=== PATIENT | male | born 1965 | race African-American/Black ===

== ENCOUNTER 2017-01-03 23:54 | Inpatient (IN) | payer SELFPAY ==
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
[2017-01-04] MEDS ORDERED: OXYCODONE-ACETAMINOPHEN 5-325 MG TABLET PO PRN (01:28)
[2017-01-04] MEDS ORDERED: ONDANSETRON HCL INJ/PF 4 MG/2 ML SDV IV PRN (01:28)
[2017-01-04 02:05] LABS: HEMATOCRIT 40.8 % (37.9-51.0); HEMOGLOBIN 13.8 g/dL (13.5-17.0); HGB HCT DIFFERENCE 0.6; MEAN CORPUSCULAR HEMOGLOBIN 32.5 pg (27.0-33.4); MEAN CORPUSCULAR HGB CONC 33.8 g/dL (32.0-36.0); MEAN CORPUSCULAR VOLUME 96 fl (80-97); RED BLOOD COUNT 4.25 10^6/uL (4.35-5.55); RED CELL DISTRIBUTION WIDTH 12.3 % (11.5-14.0); WHITE BLOOD COUNT 13.4 10^3/uL (4.0-10.5)
[2017-01-04 02:15] LABS: ANION GAP 14 (5-19); BLOOD UREA NITROGEN 16 mg/dL (7-20); CALCIUM 9.2 mg/dL (8.4-10.2); CARBON DIOXIDE 27 mmol/L (22-30); CHLORIDE 106 mmol/L (98-107); CREATININE RESULT 0.68 mg/dL (0.52-1.25); GLUCOSE 191 mg/dL (75-110); POTASSIUM 4.4 mmol/L (3.6-5.0); SODIUM 147.2 mmol/L (137-145)
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
[2017-01-04] MEDS: MORPHINE SULFATE 10 MG/ML INJ IV PRN ×4 (03:25→22:27)
[2017-01-04] MEDS ORDERED: INFLUENZA ADLT QUAD (36MOS+) 2017-18 VAC 0.5 ML SYR IM PRN (03:58)
--- NOTE | 2017-01-04 08:14 | RADIOLOGY REPORT (SQ) ---
EXAM DESCRIPTION: CHEST SINGLE VIEW COMPLETED DATE/TIME: 01/04/2017 1:46 am REASON FOR STUDY: pre-op COMPARISON: None. EXAM PARAMETERS: NUMBER OF VIEWS: One view. TECHNIQUE: Single frontal radiographic view of the chest acquired. RADIATION DOSE: NA LIMITATIONS: None. FINDINGS: LUNGS AND PLEURA: No opacities, masses or pneumothorax. No pleural effusion. MEDIASTINUM AND HILAR STRUCTURES: No masses. Contour normal. HEART AND VASCULAR STRUCTURES: Cardiac silhouette is enlarged. Normal vasculature. BONES: No acute findings. HARDWARE: None in the chest. OTHER: No other significant finding. IMPRESSION: CLEAR LUNGS. ENLARGED CARDIAC SILHOUETTE. DIFFERENTIAL INCLUDES CARDIOMEGALY AND PERICARDIAL EFFUSION. CONSIDER ECHO FOR FURTHER EVALUATION. TECHNICAL DOCUMENTATION: JOB ID: [id number]
[2017-01-04] MEDS ORDERED: GLUCAGON,HUMAN RECOMB 1 MG INJ SUBCUT PRN (10:58)
[2017-01-04] MEDS ORDERED: DEXTROSE 40% GEL 15 GM TUBE PO PRN ×4 (10:58→17:02)
[2017-01-04] MEDS ORDERED: DEXTROSE 50%-WATER 25 GM/50 ML DISP.SYRIN IV PRN ×4 (10:58→17:02)
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
[2017-01-04] MEDS ORDERED: HEPARIN SOD (PORCINE) 5,000 UNIT/ML 1 ML SYRINGE SUBCUT ONE (12:15)
[2017-01-04] MEDS ORDERED: INSULIN REG, HUMAN 100 UNIT/ML 3 ML VIAL (PYX) SUBCUT PRN (17:02)
[2017-01-04] MEDS ORDERED: GLUCAGON,HUMAN RECOMB 1 MG INJ IM PRN (17:02)
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
[2017-01-05 07:07] LABS: ABSOLUTE BASOPHILS # (AUTO) 0.1 10^3/uL (0.0-0.2); ABSOLUTE EOSINOPHILS # (AUTO) 0.2 10^3/uL (0.0-0.6); ABSOLUTE LYMPHOCYTES (AUTO) 2.8 10^3/uL (0.5-4.7); ABSOLUTE MONOCYTES (AUTO) 1.7 10^3/uL (0.1-1.4); ABSOLUTE NEUT (AUTO) 5.7 10^3/uL (1.7-8.2); BASOPHILS % (AUTO) 0.6 % (0-2); HEMATOCRIT 37.5 % (37.9-51.0); HEMOGLOBIN 12.8 g/dL (13.5-17.0); HGB HCT DIFFERENCE 0.9; LYMPHOCYTES % (AUTO) 27.2 % (13-45); MEAN CORPUSCULAR HEMOGLOBIN 32.4 pg (27.0-33.4); MEAN CORPUSCULAR HGB CONC 34.1 g/dL (32.0-36.0); MEAN CORPUSCULAR VOLUME 95 fl (80-97); MONOCYTES % (AUTO) 15.8 % (3-13); RED BLOOD COUNT 3.95 10^6/uL (4.35-5.55); RED CELL DISTRIBUTION WIDTH 11.9 % (11.5-14.0); SEGMENTED NEUTROPHILS % (AUTO) 54.4 % (42-78); WHITE BLOOD COUNT 10.4 10^3/uL (4.0-10.5)
[2017-01-05 07:23] LABS: ANION GAP 11 (5-19); BLOOD UREA NITROGEN 15 mg/dL (7-20); CALCIUM 9.1 mg/dL (8.4-10.2); CARBON DIOXIDE 29 mmol/L (22-30); CHLORIDE 102 mmol/L (98-107); CHOLESTEROL 165.21 mg/dL (0-200); CREATININE RESULT 0.66 mg/dL (0.52-1.25); Direct HDL 32 mg/dL (>40); GLUCOSE 165 mg/dL (75-110); POTASSIUM 4.1 mmol/L (3.6-5.0); TRIGLYCERIDES 59 mg/dL (<150)
[2017-01-05] MEDS ORDERED: FENTANYL CITRATE INJ/PF 100 MCG/2 ML AMPUL ONE ×2 (07:28→11:15)
[2017-01-05] MEDS ORDERED: MIDAZOLAM 2 MG/2 ML INJ ONE (07:28)
[2017-01-05] MEDS ORDERED: HYDROMORPHONE HCL INJ/PF 2 MG/ML AMPULE ONE (07:28)
[2017-01-05] MEDS ORDERED: EPHEDRINE SULFATE INJ 50 MG/1 ML AMPULE ONE (07:29)
[2017-01-05] MEDS ORDERED: PROPOFOL INJ 200 MG/20 ML VIAL IV ONE (07:29)
[2017-01-05] MEDS ORDERED: IBUPROFEN INJ 800 MG/8 ML VIAL IV ONE (07:29)
[2017-01-05] MEDS ORDERED: ACETAMINOPHEN 100 ML IV ONE (07:29)
[2017-01-05 07:34] LABS: DIRECT LDL 126 mg/dL (<100)
[2017-01-05 07:53] LABS: THYROID STIMULATING HORMONE 0.33 uIU/mL (0.47-4.68)
[2017-01-05] MEDS ORDERED: CEFAZOLIN INJ 1 GM VIAL ONE (08:11)
[2017-01-05] MEDS ORDERED: FENTANYL CITRATE INJ/PF 100 MCG/2 ML AMPUL IV PRN ×3 (08:31)
[2017-01-05] MEDS ORDERED: MORPHINE SULFATE 10 MG/ML INJ IV PRN (08:31)
[2017-01-05] MEDS ORDERED: DIPHENHYDRAMINE HCL 50 MG/ML VIAL IV PRN (08:31)
[2017-01-05] MEDS ORDERED: ONDANSETRON HCL INJ/PF 4 MG/2 ML SDV IV PRN (08:31)
[2017-01-05] MEDS ORDERED: PROMETHAZINE HCL INJ 25 MG/1 ML VIAL IV PRN ×2 (08:31)
[2017-01-05] MEDS ORDERED: MEPERIDINE HCL/PF INJ 25 MG/1 ML DISP.SYRIN IV PRN (08:31)
[2017-01-05] MEDS ORDERED: OXYCODONE-ACETAMINOPHEN 5-325 MG TABLET PO PRN ×2 (08:31)
[2017-01-05] MEDS ORDERED: BUPIVACAINE HCL 0.5 % INJ/PF 30 ML SDV ONE (10:17)
[2017-01-05] MEDS ORDERED: BUPIVACAINE HCL 0.5 % INJ/PF 30 ML SDV INJ ONE (10:21)
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
--- NOTE | 2017-01-05 11:18 | RADIOLOGY REPORT (SQ) ---
EXAM DESCRIPTION: ANKLE LEFT COMPLETE; NO CHG FLUORO COMPLETED DATE/TIME: 01/05/2017 11:08 am REASON FOR STUDY: ORIF LT ANKLE COMPARISON: 01/04/2017 FLUOROSCOPY TIME: 2.1 minutes. TECHNIQUE: Intra-operative images acquired during surgical procedure to evaluate progress. NUMBER OF IMAGES: 7 images. LIMITATIONS: None. FINDINGS: Fluoroscopic imaging obtained during ORIF demonstrates internal fixation of the distal tib ia without gross complication. IMPRESSION: IMAGE(S) OBTAINED DURING PROCEDURE. COMMENT: Quality ID [id number]: Final reports for procedures using fluoroscopy that document radiation exp osure indices, or exposure time and number of fluorographic images (if radiation exposure indices are not available) Please consult full operative report of the attending physician for description of the procedure. TECHNICAL DOCUMENTATION: JOB ID: [id number] [employer]- All Rights Reserved
--- NOTE | 2017-01-05 11:18 | RADIOLOGY REPORT (SQ) ---
EXAM DESCRIPTION: ANKLE LEFT COMPLETE; NO CHG FLUORO COMPLETED DATE/TIME: 01/05/2017 11:08 am REASON FOR STUDY: ORIF LT ANKLE COMPARISON: 01/04/2017 FLUOROSCOPY TIME: 2.1 minutes. TECHNIQUE: Intra-operative images acquired during surgical procedure to evaluate progress. NUMBER OF IMAGES: 7 images. LIMITATIONS: None. FINDINGS: Fluoroscopic imaging obtained during ORIF demonstrates internal fixation of the distal tib ia without gross complication. IMPRESSION: IMAGE(S) OBTAINED DURING PROCEDURE. COMMENT: Quality ID [id number]: Final reports for procedures using fluoroscopy that document radiation exp osure indices, or exposure time and number of fluorographic images (if radiation exposure indices are not available) Please consult full operative report of the attending physician for description of the procedure. TECHNICAL DOCUMENTATION: JOB ID: [id number] [employer]- All Rights Reserved
[2017-01-05 13:03] LABS: HEMATOCRIT 38.8 % (37.9-51.0); HEMOGLOBIN 12.9 g/dL (13.5-17.0); HGB HCT DIFFERENCE -0.1; MEAN CORPUSCULAR HEMOGLOBIN 32.1 pg (27.0-33.4); MEAN CORPUSCULAR HGB CONC 33.3 g/dL (32.0-36.0); MEAN CORPUSCULAR VOLUME 97 fl (80-97); RED BLOOD COUNT 4.02 10^6/uL (4.35-5.55); RED CELL DISTRIBUTION WIDTH 12.2 % (11.5-14.0); WHITE BLOOD COUNT 11.5 10^3/uL (4.0-10.5)
[2017-01-05 13:10] LABS: PROTHROMBIN TIME 14.1 SEC (11.4-15.4)
[2017-01-05 13:11] LABS: PARTIAL THROMBOPLASTIN TIME 30.1 SEC (23.5-35.8)
[2017-01-05 13:24] LABS: CREATININE RESULT 0.69 mg/dL (0.52-1.25)
[2017-01-05] MEDS: HEPARIN SOD (PORCINE) 5,000 UNIT/ML 1 ML SYRINGE SUBCUT SCH ×2 (13:29→21:16)
[2017-01-05] MEDS: KETOROLAC TROMETHAMINE INJ/PF 30 MG/1 ML SDV IV SCH ×3 (13:29→23:06)
[2017-01-05] MEDS ORDERED: ONDANSETRON HCL INJ/PF 4 MG/2 ML SDV ONE (14:38)
[2017-01-05] MEDS ORDERED: SUCCINYLCHOLINE CHLORIDE INJ 200 MG/10 ML VIAL ONE (14:38)
[2017-01-05] MEDS ORDERED: METOCLOPRAMIDE HCL INJ/PF 10 MG/2 ML SDV ONE (14:38)
[2017-01-05] MEDS ORDERED: LIDOCAINE 2% INJ-PF (20 MG/ML) 10 ML AMPUL ONE (14:38)
[2017-01-05] MEDS ORDERED: DEXAMETHASONE SOD PHOSPHATE INJ 4 MG/1 ML VIAL ONE (14:38)
--- NOTE | 2017-01-05 17:02 | EKG REPORT ---
SEVERITY:- ABNORMAL ECG - SINUS TACHYCARDIA MULTIPLE ATRIAL PREMATURE COMPLEXES PROBABLE LEFT ATRIAL ABNORMALITY BORDERLINE T ABNORMALITIES, INFERIOR LEADS : Confirmed by: Serenity Cavazos MD 05-Jan-2017 17:01:53
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
[2017-01-05] MEDS: OXYCODONE HCL SR 10 MG TABLET PO SCH (21:16)
[2017-01-05] MEDS ORDERED: INSULIN REG, HUMAN 100 UNIT/ML 3 ML VIAL (PYX) SUBCUT PRN (22:07)
[2017-01-05] MEDS ORDERED: INSULIN REG, HUMAN 100 UNIT/ML 3 ML VIAL (PYX) SUBCUT ONE (22:22)
[2017-01-06] MEDS: HEPARIN SOD (PORCINE) 5,000 UNIT/ML 1 ML SYRINGE SUBCUT SCH (06:05)
[2017-01-06] MEDS: KETOROLAC TROMETHAMINE INJ/PF 30 MG/1 ML SDV IV SCH (06:05)
[2017-01-06 06:13] LABS: HEMOGLOBIN 11.8 g/dL (13.5-17.0); HGB HCT DIFFERENCE 0.4; MEAN CORPUSCULAR HGB CONC 33.8 g/dL (32.0-36.0); MEAN CORPUSCULAR VOLUME 95 fl (80-97); RED CELL DISTRIBUTION WIDTH 12.2 % (11.5-14.0); WHITE BLOOD COUNT 20.8 10^3/uL (4.0-10.5)
[2017-01-06 06:20] LABS: ANION GAP 10 (5-19); BLOOD UREA NITROGEN 17 mg/dL (7-20); CARBON DIOXIDE 28 mmol/L (22-30); CHLORIDE 106 mmol/L (98-107); CREATININE RESULT 0.61 mg/dL (0.52-1.25); GLUCOSE 117 mg/dL (75-110)
[2017-01-06 10:21] VITALS: BP 137/89
[2017-01-06] MEDS: OXYCODONE HCL SR 10 MG TABLET PO SCH (10:53)
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
== END 2017-01-06 11:25 | disposition home or self-care (01) | DRG 494 ==
LOC: ER 23:54 → EH 01-04 01:22 → INTOOBSV 01-04 01:22 → OBSVTOIN 01-04 01:22 → UNDOADMIN 01-04 01:27 → EH 01-04 01:27 → 5 01-04 02:49
PROVIDERS: ADMIT Orthopaedic Surgery; ATTEND Orthopaedic Surgery
PROC: 0QSH34Z Reposition Left Tibia with Internal Fixation Device, Percutaneous Approach (ICD-10-PCS; principal; 2017-01-05 08:00)
DX: S82.872A Displaced pilon fracture of left tibia, initial encounter for closed fracture (principal); S42.142A Displaced fracture of glenoid cavity of scapula, left shoulder, initial encounter for closed fracture; S09.90XA Unspecified injury of head, initial encounter; Y04.0XXA Assault by unarmed brawl or fight, initial encounter; E78.5 Hyperlipidemia, unspecified; I10 Essential (primary) hypertension; E11.9 Type 2 diabetes mellitus without complications; J32.0 Chronic maxillary sinusitis; F17.210 Nicotine dependence, cigarettes, uncomplicated; M50.322 Other cervical disc degeneration at C5-C6 level; E11.65 Type 2 diabetes mellitus with hyperglycemia; Z79.899 Other long term (current) drug therapy; Z91.11 Patient's noncompliance with dietary regimen
CPT/HCPCS: 01480; 36415; 70450; 71010; 72125; 80048; 80061; 82565; 82962; 83036; 84439; 84443; 85025; 85027; 85610; 85730; 90686; 93005; 93010; 99285; C1713; J0131; J0330; J0690; J1100; J1170; J1644; J1741; J1815; J1885; J2250; J2270; J2405; J2704; J2765; J3010; J3490; L0120

== ENCOUNTER 2019-05-19 12:00 | Emergency (ER) | payer BC, OTHER ==
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
--- NOTE | 2019-05-19 13:37 | RADIOLOGY REPORT (SQ) ---
EXAM DESCRIPTION: ANKLE LEFT COMPLETE COMPLETED DATE/TIME: 05/19/2019 1:21 pm REASON FOR STUDY: POSSIBLE BROKEN PLATE COMPARISON: None. NUMBER OF VIEWS: Three views. TECHNIQUE: AP, lateral, and oblique radiographic images acquired of the left ankle. LIMITATIONS: None. FINDINGS: MINERALIZATION: Normal. BONES: Posttraumatic and postsurgical changes in the distal tibia and fibula. Internal fixation plat e remains in the distal tibia. There has been fusion of the distal tibiofibular joint. No acute fra cture or dislocation. JOINTS: There are degenerative changes in the tibiotalar joint as well. SOFT TISSUES: No soft tissue swelling. No foreign body. OTHER: No other significant finding. IMPRESSION: Posttraumatic, postsurgical and degenerative changes. No acute fracture or dislocation. TECHNICAL DOCUMENTATION: JOB ID: [id number] 2010 [employer]- All Rights Reserved Reading location - IP/workstation name: [email or web address]
--- NOTE | 2019-05-19 13:43 | RADIOLOGY REPORT (SQ) ---
EXAM DESCRIPTION: FOOT BILATERAL 3 VIEWS COMPLETED DATE/TIME: 05/19/2019 1:21 pm REASON FOR STUDY: R ft - ulcer/wound; L ft - possible broken plate COMPARISON: None. NUMBER OF VIEWS: Three views. TECHNIQUE: AP, lateral and oblique without weight bearing radiographic images acquired of the right and left foot. LIMITATIONS: None. FINDINGS: MINERALIZATION: Normal. BONES: No acute fracture or dislocation. No worrisome bone lesions. No significant osteophytes. JOINTS: No erosions. No handy-articular osteopenia. No chondrocalcinosis. SOFT TISSUES: Small soft tissue ulceration along the ventral aspect of the foot near the metatarsal p halangeal joints. OTHER: No other significant finding. IMPRESSION: Soft tissue changes as described on the right foot. No conventional radiographic eviden ce of osteomyelitis. TECHNICAL DOCUMENTATION: JOB ID: [id number] 2010 [employer]- All Rights Reserved Reading location - IP/workstation name: [email or web address]
[2019-05-19 14:51] LABS: ABSOLUTE BASOPHILS # (AUTO) 0.1 10^3/uL (0.0-0.2); ABSOLUTE LYMPHOCYTES (AUTO) 0.8 10^3/uL (0.5-4.7); ABSOLUTE MONOCYTES (AUTO) 1.9 10^3/uL (0.1-1.4); ABSOLUTE NEUT (AUTO) 12.9 10^3/uL (1.7-8.2); BASOPHILS % (AUTO) 0.3 % (0-2); EOSINOPHILS % (AUTO) 0.3 % (0-6); HEMATOCRIT 43.3 % (37.9-51.0); HEMOGLOBIN 14.8 g/dL (13.5-17.0); LYMPHOCYTES % (AUTO) 5.3 % (13-45); MEAN CORPUSCULAR HEMOGLOBIN 32.4 pg (27.0-33.4); MEAN CORPUSCULAR HGB CONC 34.1 g/dL (32.0-36.0); MEAN CORPUSCULAR VOLUME 95 fl (80-97); MONOCYTES % (AUTO) 11.8 % (3-13); PLATELET COUNT 259 10^3/uL (150-450); RED BLOOD COUNT 4.56 10^6/uL (4.35-5.55); SEGMENTED NEUTROPHILS % (AUTO) 82.3 % (42-78); TOTAL CELLS COUNTED % (AUTO) 100 %; WHITE BLOOD COUNT 15.7 10^3/uL (4.0-10.5)
[2019-05-19 15:10] LABS: ALBUMIN 3.9 g/dL (3.5-5.0); ALKALINE PHOSPHATASE 115 U/L (38-126); ANION GAP 9 (5-19); ASPARTATE AMINO TRANSFERASE 32 U/L (17-59); BILIRUBIN,DIRECT 0.5 mg/dL (0.0-0.4); BILIRUBIN,TOTAL 1.2 mg/dL (0.2-1.3); BLOOD UREA NITROGEN 16 mg/dL (7-20); CALCIUM 9.4 mg/dL (8.4-10.2); CARBON DIOXIDE 33 mmol/L (22-30); CHLORIDE 97 mmol/L (98-107); GLUCOSE 288 mg/dL (75-110); POTASSIUM 4.9 mmol/L (3.6-5.0); TOTAL PROTEIN 8.3 g/dL (6.3-8.2)
[2019-05-19 18:20] VITALS: BP 113/46
--- NOTE | 2019-05-20 13:48 | ER Document Report ---
Entered by DILLON ORDOÑEZ SCRIBE 05/19/19 1758 Acting as scribe for:MARYJO SENIOR, DO ED Extremity Problem, Lower - General Chief Complaint: Foot Pain Stated Complaint: FOOT PAIN Time Seen by Provider: 05/19/19 12:49 Mode of Arrival: Ambulatory Information source: Patient Notes: This 53 year old male patient presents to the emergency department today with complaints of an ulceration to the bottom of his right foot. Patient reports that about 9 months ago he stepped on a thumb tack in this same area but never had a problem with it until a few weeks ago. TRAVEL OUTSIDE OF THE [place] IN LAST 30 DAYS: No - Related Data Allergies/Adverse Reactions: No Known Allergies Allergy (Verified 05/19/19 12:49) Past Medical History - General Information source: Patient - Social History Smoking Status: Current Every Day Smoker Cigarette use (# per day): Yes Frequency of alcohol use: None Drug Abuse: None Family History: Reviewed & Not Pertinent Patient has suicidal ideation: No Patient has homicidal ideation: No - Past Medical History Cardiac Medical History: Reports: Hx Hypercholesterolemia, Hx Hypertension Endocrine Medical History: Reports: Hx Diabetes Mellitus Type 2 Review of Systems - Review of Systems Constitutional: No symptoms reported EENT: No symptoms reported Cardiovascular: No symptoms reported Respiratory: No symptoms reported Gastrointestinal: No symptoms reported Genitourinary: No symptoms reported Male Genitourinary: No symptoms reported Musculoskeletal: No symptoms reported Skin: See HPI, Lesions Hematologic/Lymphatic: No symptoms reported Neurological/Psychological: No symptoms reported -: Yes All other systems reviewed and negative Physical Exam - Vital signs Vitals: Temp Pulse Resp BP Pulse Ox 98.6 F 102 H 18 168/98 H 98 05/19/19 12:46 05/19/19 12:46 05/19/19 12:46 05/19/19 12:46 05/19/19 12:46 - Notes Notes: Physical Exam: General: Alert, appears well. HEENT: Normocephalic. Atraumatic. PERRL. Extraocular movements intact. Oropharynx clear. Neck: Supple. Non-tender. Respiratory: No respiratory distress. Clear and equal breath sounds bilaterally. Cardiovascular: Regular rate and rhythm. Abdominal: Normal Inspection. Non-tender. No distension. Normal Bowel Sounds. Back: No gross abnormalities. Extremities: Moves all four extremities. Upper extremities: Normal inspection. Normal ROM. Lower extremities: see skin exam Neurological: Normal cognition. AAOx4. Normal speech. Psychological: Normal affect. Normal Mood. Skin: 1cm ulceration to the base of the right first metatarsal. This ulcer is 3mm deep. There is surrounding granulation tissue. No surrounding erythema or concern for cellulitis. Course - Vital Signs Vital signs: Temp Pulse Resp BP Pulse Ox 99.5 F 96 18 113/46 L 98 05/19/19 18:07 05/19/19 18:07 05/19/19 12:46 05/19/19 18:07 05/19/19 18:07 - Laboratory Result Diagrams: 05/19/19 14:25 05/19/19 14:25 Laboratory results interpreted by me: 05/19/19 05/19/19 05/19/19 14:25 14:25 14:26 WBC 15.7 H Lymph % (Auto) 5.3 L Absolute Neuts (auto) 12.9 H Absolute Monos (auto) 1.9 H Seg Neutrophils % 82.3 H Chloride 97 L Carbon Dioxide 33 H Glucose 288 H POC Glucose 257 H Direct Bilirubin 0.5 H Total Protein 8.3 H Discharge - Discharge Clinical Impression: Hypertension Qualifiers: Hypertension type: unspecified Qualified Code(s): I10 - Essential (primary) hypertension DM type 2 (diabetes mellitus, type 2) Qualifiers: Diabetes mellitus fdc insulin use: without genetic engineer use Diabetes mellitus complication status: with other specified complication Qualified Code(s): E11.69 - Type 2 diabetes mellitus with other specified complication Condition: Good Disposition: HOME, SELF-CARE Instructions: Diabetes ([facility]), Control of Diabetes During Illness ([facility]), Foot or Leg Ulcer ([facility]) Additional Instructions: See your doctor in follow up. Follow the diabetic diet. Please return here for any problems or any concerns. Prescriptions: Amoxicillin/Potassium Clav [Augmentin 875-125 Tablet] 1 tab PO BID #20 tab Metformin HCl 1,000 mg PO BID #60 tablet I personally performed the services described in the documentation, reviewed and edited the documentation which was dictated to the scribe in my presence, and it accurately records my words and actions.
== END 2019-05-19 18:20 | disposition home or self-care (01) ==
LOC: ER 12:00
DX: E11.621 Type 2 diabetes mellitus with foot ulcer (principal); L97.519 Non-pressure chronic ulcer of other part of right foot with unspecified severity; I10 Essential (primary) hypertension; F17.210 Nicotine dependence, cigarettes, uncomplicated
CPT/HCPCS: 36415; 80053; 82962; 85025; 99283

== ENCOUNTER 2019-06-18 16:57 | Inpatient (IN) | payer BC ==
[2019-06-18] MEDS ORDERED: NORMAL SALINE 1000 ML 1,000 ML IV PRN (17:12)
--- NOTE | 2019-06-18 17:15 | ER Document Report ---
ED Medical Screen (RME) - General Chief Complaint: Foot Pain Stated Complaint: OPEN SORE/RIGHT FOOT, DRAINAGE Time Seen by Provider: 06/18/19 17:00 Mode of Arrival: Ambulatory TRAVEL OUTSIDE OF THE [place] IN LAST 30 DAYS: No - HPI Onset: Other - This is a 53-year-old male presented emergency room today with pain and tenderness to his right foot he has apparently had some cellulitis there and a puncture wound about 3 weeks ago he was seen here at 1 point in time followed up in urgent care has been on antibiotics for approximately 20 days the infection seems to be getting worse and it is rather odiferous. He was seen in urgent care today and referred here. - Related Data Allergies/Adverse Reactions: No Known Allergies Allergy (Verified 06/18/19 17:04) Home Medications: atb. meformin Past Medical History - Social History Chew tobacco use (# tins/day): No Frequency of alcohol use: None Drug Abuse: None - Past Medical History Cardiac Medical History: Reports: Hx Hypercholesterolemia, Hx Hypertension Endocrine Medical History: Reports: Hx Diabetes Mellitus Type 2 Physical Exam - Vital signs Vitals: Temp Pulse Resp BP Pulse Ox 100.0 F 102 H 20 150/87 H 99 06/18/19 17:04 06/18/19 17:04 06/18/19 17:04 06/18/19 17:04 06/18/19 17:04 - Cardiovascular Rhythm: Regular Heart sounds: Normal auscultation Murmur: No Course - Vital Signs Vital signs: Temp Pulse Resp BP Pulse Ox 100.0 F 102 H 20 150/87 H 99 06/18/19 17:04 06/18/19 17:04 06/18/19 17:04 06/18/19 17:04 06/18/19 17:04
[2019-06-18] MEDS ORDERED: ACETAMINOPHEN 325 MG TABLET PO ONE (17:54)
--- NOTE | 2019-06-18 17:59 | RADIOLOGY REPORT (SQ) ---
EXAM DESCRIPTION: FOOT RIGHT COMPLETE COMPLETED DATE/TIME: 06/18/2019 5:40 pm REASON FOR STUDY: pain COMPARISON: None. NUMBER OF VIEWS: Three views. TECHNIQUE: AP, lateral and oblique radiographic images acquired of the right foot. LIMITATIONS: None. FINDINGS: MINERALIZATION: Osteopenia. BONES: No fracture or dislocation. No bone destruction. JOINTS: No effusions. SOFT TISSUES: Soft tissue lesions are seen in the medial aspect of the foot. OTHER: No other significant finding. IMPRESSION: Osteopenia. There is no evidence of osteomyelitis. TECHNICAL DOCUMENTATION: JOB ID: [id number] 2010 [employer]- All Rights Reserved Reading location - IP/workstation name: [email or web address]
[2019-06-18 18:06] LABS: INTERNATIONAL RATION (INR) 1.07; PROTHROMBIN TIME 13.9 SEC (11.4-15.4)
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
[2019-06-18 18:24] LABS: ALBUMIN 3.8 g/dL (3.5-5.0); ALKALINE PHOSPHATASE 167 U/L (38-126); ANION GAP 12 (5-19); ASPARTATE AMINO TRANSFERASE 37 U/L (17-59); BILIRUBIN,DIRECT 0.6 mg/dL (0.0-0.4); BLOOD UREA NITROGEN 15 mg/dL (7-20); CALCIUM 9.1 mg/dL (8.4-10.2); CARBON DIOXIDE 25 mmol/L (22-30); CHLORIDE 100 mmol/L (98-107); POTASSIUM 4.2 mmol/L (3.6-5.0); TOTAL PROTEIN 9.4 g/dL (6.3-8.2)
[2019-06-18 18:29] LABS: HEMATOCRIT 38.6 % (37.9-51.0); HEMOGLOBIN 12.8 g/dL (13.5-17.0); MEAN CORPUSCULAR HEMOGLOBIN 31.3 pg (27.0-33.4); MEAN CORPUSCULAR HGB CONC 33.1 g/dL (32.0-36.0); MEAN CORPUSCULAR VOLUME 95 fl (80-97); PLATELET COUNT 276 10^3/uL (150-450); RED BLOOD COUNT 4.08 10^6/uL (4.35-5.55); RED CELL DISTRIBUTION WIDTH 13.6 % (11.5-14.0); WHITE BLOOD COUNT 21.3 10^3/uL (4.0-10.5)
[2019-06-18 18:34] LABS: GLUCOSE 416 mg/dL (75-110)
[2019-06-18 18:38] LABS: ABSOLUTE LYMPHOCYTES# (MANUAL) 2.1 10^3/uL (0.5-4.7); ABSOLUTE MONOCYTES # (MANUAL) 1.1 10^3/uL (0.1-1.4); BASOPHILS % (MANUAL) 0 % (0-2); EOSINOPHILS % (MANUAL) 0 % (0-6); LYMPHOCYTES % (MANUAL) 10 % (13-45); MONOCYTES % (MANUAL) 5 % (3-13); PLATELET COMMENT ADEQUATE; SEGMENTED NEUTROPHILS % (MAN) 85 % (42-78); TOTAL CELLS COUNTED 100
[2019-06-18 18:39] LABS: PLATELET LARGE PRESENT
[2019-06-18 18:41] LABS: HYPOCHROMASIA SLIGHT
[2019-06-18] MEDS ORDERED: INSULIN REG, HUMAN 100 UNIT/ML 3 ML VIAL (PYX) SUBCUT ONE (18:41)
[2019-06-18] MEDS ORDERED: MORPHINE SULFATE 10 MG/ML INJ IV ONE (18:41)
[2019-06-18] MEDS ORDERED: CEFEPIME 1 GM/D5W RTU 1 GM/50 ML RTUPB IV ONE (18:43)
[2019-06-18] MEDS ORDERED: VANCOMYCIN HCL INJ 1000 MG VIAL IV ONE (18:43)
[2019-06-18] MEDS ORDERED: NORMAL SALINE 1000 ML 1,000 ML IV ONE (19:26)
[2019-06-18] MEDS ORDERED: MAG HYDROX/AL HYDROX/SIMETH SUSP 30 ML UDCUP PO PRN (20:33)
[2019-06-18] MEDS ORDERED: MAGNESIUM HYDROXIDE SUSP 30 ML UDCUP PO PRN (20:33)
[2019-06-18] MEDS ORDERED: GLUCAGON,HUMAN RECOMB 1 MG INJ IM PRN (20:33)
[2019-06-18] MEDS ORDERED: DEXTROSE 40% GEL 15 GM TUBE PO PRN ×2 (20:33)
[2019-06-18] MEDS ORDERED: DEXTROSE 50%-WATER 25 GM/50 ML DISP.SYRIN IV PRN ×2 (20:33)
[2019-06-18] MEDS ORDERED: PROMETHAZINE HCL INJ 25 MG/1 ML VIAL IV PRN (20:33)
[2019-06-18] MEDS ORDERED: IBUPROFEN 800 MG TABLET PO PRN (20:38)
[2019-06-18] MEDS ORDERED: NICOTINE 21 MG/24 HR PATCH.TD24 TD PRN (20:38)
[2019-06-18] MEDS ORDERED: MELATONIN 5 MG TABLET PO PRN (20:38)
[2019-06-18] MEDS ORDERED: GUAIFENESIN SYRP 200 MG/10 ML UDC PO PRN (20:38)
[2019-06-18] MEDS ORDERED: MORPHINE SULFATE 10 MG/ML INJ IV PRN ×2 (20:38)
[2019-06-18] MEDS ORDERED: ACETAMINOPHEN 325 MG TABLET PO PRN (20:38)
[2019-06-18] MEDS ORDERED: HYDRALAZINE HCL INJ/PF 20 MG/1 ML SDV IV PRN (20:38)
[2019-06-18 20:43] LABS: APPEARANCE,URINE CLEAR; BILIRUBIN,URINE NEGATIVE (NEGATIVE); COLOR,URINE YELLOW; GLUCOSE, URINE >=500 mg/dL (NEGATIVE); KETONES,URINE NEGATIVE (NEGATIVE); LEUKOCYTE ESTERASE,URINE NEGATIVE (NEGATIVE); NITRITE,URINE NEGATIVE (NEGATIVE); PROTEIN,URINE 30 mg/dL (NEGATIVE); URINE SPECIFIC GRAVITY 1.025; UROBILINOGEN,URINE NEGATIVE mg/dL (<2.0)
[2019-06-18] MEDS ORDERED: VANCOMYCIN HCL INJ 1000 MG VIAL IV SCH (20:45)
--- NOTE | 2019-06-18 22:28 | RADIOLOGY REPORT (SQ) ---
EXAM DESCRIPTION: US LOWER EXTREMITY ARTERIES LIMITED/UNILATERAL/FOLLOW UP COMPLETED DATE/TME: 06/18/2019 17:55 CLINICAL HISTORY: 53 years, Male, eval RLE, chronic wounds rt foot COMPARISON: None. TECHNIQUE: Transverse longitudinal sonographic images of the right lower extremity arterial system LIMITATIONS: None. FINDINGS: Imaging demonstrates at least moderate to severe atheromatous calcifications throughout the right lower extremity arterial system. Primarily monophasic waveforms are noted throughout. Velocities are as follows (in peak systolic velocity): Common femoral artery: 55 cm/s Proximal SFA: 42 cm/s Mid SFA: 22 cm/s Distal SFA: 31 cm/s Proximal popliteal artery: 57 cm/s Distal popliteal artery: 69 cm/s Proximal posterior tibial artery: 69 cm/s Peroneal artery: 35 cm/s Proximal anterior tibial artery: 17 cm/s Dorsalis pedis artery: 30 cm/s IMPRESSION: Findings suggestive of moderate to severe atheromatous disease with extensive atheromatous changes and diffusely monophasic waveforms throughout. copyright 2010 [employer]- All Rights Reserved
[2019-06-18] MEDS: FAMOTIDINE 20 MG TABLET PO SCH (22:49)
[2019-06-18] MEDS: HEPARIN SOD (PORCINE) 5,000 UNIT/ML 1 ML VIAL SUBCUT SCH (22:59)
[2019-06-18] MEDS: PIPERACILLIN SODIUM/TAZOBACTAM 3.375 GM in NORMAL SALINE 100 ML IV SCH (23:08)
[2019-06-19] MEDS ORDERED: PIPERACILLIN/TAZOBACTAM 3.375 GM VIAL IV SCH
--- NOTE | 2019-06-19 01:06 | PDOC CONSULTATION ---
Consultation Consult Date: 06/19/19 Provider Consulted: LULI IRELAND Consult reason:: Infected right foot History of Present Illness Admission Date/PCP: 06/18/19 20:13 History of Present Illness: COLLIN CRUZ is a 53 year old male who is a type II diabetic, stepped on a thumbtack with his right foot about a year ago. This gradually got worse and was initially seen in our ED about a month ago and was prescribed some antibiotics. He was also seen in another facility prior and was also given p.o. antibiotics. Patient noticed worsening of his pains on the right foot and then went to our ED. He had an arterial circulation of the right leg which showed moderate to market arterial insufficiency. Regular x-rays of the right foot showed no evidence of osteomyelitis is blood sugar is markedly elevated and had insulin and now it is 250 range. Past Medical History Cardiac Medical History: Reports: Hyperlipidema, Hypertension Denies: Atrial Fibrillation, Congestive Heart Failure, Coronary Artery Disease, DVT, Myocardial Infarction, Pulmonary Embolism Pulmonary Medical History: Denies: Asthma, Chronic Obstructive Pulmonary Disease (COPD) EENT Medical History: Denies: Cataracts, Ears - Hearing aids Neurological Medical History: Denies: Hemorrhagic CVA, Ischemic CVA Endocrine Medical History: Reports: Diabetes Mellitus Type 2 Denies: Diabetes Mellitus Type 1, Hyperthyroidism, Hypothyroidism Renal/ Medical History: Denies: Chronic Kidney Disease, Nephrolithiasis Malignancy Medical History: Reports: None GI Medical History: Denies: Cirrhosis, Crohn's Disease, Gastroesophageal Reflux Disease, Hepatitis, Peptic Ulcer Disease, Ulcerative Colitis Musculoskeltal Medical History: Denies: Arthritis, Gout Skin Medical History: Reports: Other - Chronic ulceration of the plantar surface of the right foot Denies: Eczema, Psoriasis Psychiatric Medical History: Reports: Tobacco Dependency Denies: Alcohol Dependency, Substance Abuse Traumatic Medical History: Reports: None Hematology: Denies: Anemia, Bleeding Tendencies Infectious Medical History: Reports: None Past Surgical History Past Surgical History: Reports: Orthopedic Surgery - Left ankle fracture repair Social History Lives with: Spouse/Significant other Smoking Status: Current Every Day Smoker Cigarettes Packs Per Day: 0.5 Electronic Cigarette use?: No Frequency of Alcohol Use: None Hx Recreational Drug Use: No Drugs: None Hx Prescription Drug Abuse: No - Advance Directive Resuscitation Status: Full Code Family History Family History: denies: CAD, DM, Hypertension, Malignancy Parental Family History Reviewed: Yes Children Family History Reviewed: No Sibling(s) Family History Reviewed.: No Medication/Allergy Allergies/Adverse Reactions: No Known Allergies Allergy (Verified 06/18/19 17:04) Review of Systems Constitutional: PRESENT: fever(s) Cardiovascular: PRESENT: other - Denies chest pains nor shortness of breath or cough Gastrointestinal: PRESENT: other - No pain Musculoskeletal: PRESENT: other - Right foot pains Physical Exam Vital Signs: Temp Pulse Resp BP Pulse Ox 98.6 F 85 16 147/91 H 99 06/18/19 20:33 06/18/19 20:33 06/18/19 22:00 06/18/19 21:01 06/18/19 22:00 Intake & Output 06/17/19 06/18/19 06/19/19 06:59 06:59 06:59 Intake Total 2049 Balance 2049 Weight 67.2 kg General appearance: PRESENT: mild distress Eye exam: PRESENT: conjunctiva pink Mouth exam: PRESENT: moist Neck exam: PRESENT: full ROM Respiratory exam: PRESENT: clear to auscultation isaac Cardiovascular exam: PRESENT: RRR Pulses: PRESENT: normal radial pulses, normal femoral pulses - Left side, other - Absent right femoral, right popliteal, and right ankle pulses. Vascular exam: PRESENT: other - Most of the left foot is warm but the big toe is cool with some scab formation on the dorsum of the first metatarsophalangeal joint area and also on the medial side of the first metatarsal site. Extremities exam: PRESENT: other - The right foot is swollen with at least 3 wounds on the proximal medial side, on the mid medial side and the distal medial side which is draining some purulent material when he squeezed around. The the re is some scab formation along the right first metatarsal medial side and on the dorsum of the right big toe. The big toe itself feels cool with poor capillary refill. Skin exam: PRESENT: normal color, warm - For most of the right foot. The right big toe is cool with some small amount of drainage in the web between the first and second toes. This is tender as well as the areas of the right foot with ulcerations. There were at least 3 wounds on the right foot each 1 roughly measuring about 1 to 1.5 cm long. Results Laboratory Results: 06/18/19 17:21 06/18/19 17:21 06/18/19 06/18/19 06/18/19 17:21 17:21 19:11 WBC 21.3 H RBC 4.08 L Hgb 12.8 L Hct 38.6 MCV 95 MCH 31.3 MCHC 33.1 RDW 13.6 Plt Count 276 Seg Neutrophils % Not Reportable Sodium 136.8 L Potassium 4.2 Chloride 100 Carbon Dioxide 25 Anion Gap 12 BUN 15 Creatinine 0.53 Est GFR ( Amer) > 60 Glucose 416 H* Lactic Acid 1.8 Calcium 9.1 Total Bilirubin 1.0 AST 37 Alkaline Phosphatase 167 H Total Protein 9.4 H Albumin 3.8 Urine Color Urine Appearance Urine pH Ur Specific Royal Urine Protein Urine Glucose (UA) Urine Ketones Urine Blood Urine Nitrite Ur Leukocyte Esterase Urine WBC (Auto) Urine RBC (Auto) 06/18/19 06/18/19 20:23 22:03 WBC RBC Hgb Hct MCV MCH MCHC RDW Plt Count Seg Neutrophils % Sodium Potassium Chloride Carbon Dioxide Anion Gap BUN Creatinine Est GFR ( Amer) Glucose Lactic Acid 1.4 Calcium Total Bilirubin AST Alkaline Phosphatase Total Protein Albumin Urine Color YELLOW Urine Appearance CLEAR Urine pH 5.0 Ur Specific Royal 1.025 Urine Protein 30 H Urine Glucose (UA) >=500 H Urine Ketones NEGATIVE Urine Blood NEGATIVE Urine Nitrite NEGATIVE Ur Leukocyte Esterase NEGATIVE Urine WBC (Auto) 1 Urine RBC (Auto) 1 Impressions: Foot X-Ray 06/18/19 17:12 IMPRESSION: Osteopenia. There is no evidence of osteomyelitis. Extremity Arterial Study 06/18/19 17:55 IMPRESSION: Findings suggestive of moderate to severe atheromatous disease with extensive atheromatous changes and diffusely monophasic waveforms throughout. copyright 2011 [employer]- All Rights Reserved Assessment & Plan - Diagnosis (1) Diabetes mellitus type 2 in nonobese Is this a current diagnosis for this admission?: Yes (2) Peripheral vascular disease in diabetes mellitus Is this a current diagnosis for this admission?: Yes (3) Right foot infection Is this a current diagnosis for this admission?: Yes (5) Infected ulcers of the right foot Is this a current diagnosis for this admission?: Yes - Time Time Spent: 30 to 50 Minutes - Inpatient Certification Medical Necessity: Need for IV Antibiotics, Need for Surgery - Plan Summary Plan Summary: This is a 53-year-old male with type 2 diabetes mellitus stepped on thumbtack with his right foot about a year ago. This gradually get worse. And was seen in another facility at least 2 to 3 months ago and was given p.o. antibiotics. He was then seen in the ED a month ago was given p.o. antibiotics. Came to ED again tonight for worsening pains he had an circulation testing of the right leg which showed moderate to severe arterial insufficiency. I could not feel pulse along the right femoral, right popliteal or right ankle. The right foot is swollen with at least 3 ulcers with a distal ulcer draining purulent material when being squeezed around it. The right big toe is cool with pregangrenous changes. of the right foot with foul-smelling drainage. Impression: Infected right foot with ulcerations Pregangrenous changes the right big toe Severe arterial insufficiency right leg Diabetes mellitus type 2 Smoker Recommendations: Patient needs vascular evaluation by a vascular surgeon soon as possible. Will need debridement and possible amputation of the right big toe. Continue blood sugar management and IV antibiotics I have discussed with the patient his current poor circulation of the right leg and will likely need eventually at least right below-knee amputation
[2019-06-19] MEDS ORDERED: INFLUENZA QUAD (6MOS+) 2019-20 VAC 0.5 ML SYR IM ONE (02:03)
--- NOTE | 2019-06-19 02:04 | PDOC H&P ---
History of Present Illness Admission Date/PCP: 06/18/2019 19:53 No local PCP Patient complains of: Right foot pain History of Present Illness: COLLIN CRUZ is a 53 year old male who presented to the emergency room with a 10-month history of right foot pain. He admits having developed an ulceration on the sole of his foot after stepping on attack 10 months ago. His foot wound has gradually worsened and has been treated at the wound care clinic. He was placed on antibiotics (Augmentin) 1 month ago and took a 20-day course. His wound has not improved with antibiotic therapy, his pain/tenderness has increased to moderate-severe in intensity, the forefoot area has become more swollen, the skin of the forefoot and toes has become more erythematous and a very minimal purulent discharge with a foul odor has been noted. He describes the pain as a constant, nonradiating aching soreness worsened by weightbearing or palpation of the area. He denies other associated or accompanying signs and symptoms. He denies prior similar episodes. He has not identified any additional aggravating or ameliorating factors for his right foot pain. In the ER he was found to have a leukocytosis and foul-smelling plantar surface ulcers of the right forefoot. Osteomyelitis was ruled out by radiography. Patient was subsequently admitted to the hospital for further evaluation and treatment. Past Medical History Cardiac Medical History: Reports: Hyperlipidema, Hypertension Denies: Atrial Fibrillation, Congestive Heart Failure, Coronary Artery Diseas e, DVT, Myocardial Infarction, Pulmonary Embolism Pulmonary Medical History: Denies: Asthma, Chronic Obstructive Pulmonary Disease (COPD) EENT Medical History: Denies: Cataracts, Ears - Hearing aids Neurological Medical History: Denies: Hemorrhagic CVA, Ischemic CVA Endocrine Medical History: Reports: Diabetes Mellitus Type 2 Denies: Diabetes Mellitus Type 1, Hyperthyroidism, Hypothyroidism Renal/ Medical History: Denies: Chronic Kidney Disease, Nephrolithiasis Malignancy Medical History: Reports: None GI Medical History: Denies: Cirrhosis, Crohn's Disease, Gastroesophageal Reflux Disease, Hepatitis, Peptic Ulcer Disease, Ulcerative Colitis Musculoskeltal Medical History: Denies: Arthritis, Gout Skin Medical History: Reports: Other - Chronic ulceration of the plantar surface of the right foot Denies: Eczema, Psoriasis Psychiatric Medical History: Reports: Substance Abuse, Tobacco Dependency Denies: Alcohol Dependency Traumatic Medical History: Reports: None Hematology: Denies: Anemia, Bleeding Tendencies Infectious Medical History: Reports: None Past Surgical History Past Surgical History: Reports: Orthopedic Surgery - Left ankle fracture repair Social History Information Source: Patient Lives with: Spouse/Significant other Smoking Status: Current Every Day Smoker Cigarettes Packs Per Day: 0.2 Electronic Cigarette use?: No Frequency of Alcohol Use: None Hx Recreational Drug Use: Yes Drugs: Cocaine - Quit using crack cocaine 3 years ago Hx Prescription Drug Abuse: No - Advance Directive Resuscitation Status: Full Code Surrogate healthcare decision maker:: Shwetha Wasserman Family History Family History: DM. denies: CAD, CVA, Hyperlipidemia, Hypertension, Malignancy Parental Family History Reviewed: Yes Children Family History Reviewed: No Sibling(s) Family History Reviewed.: Yes Medication/Allergy Allergies/Adverse Reactions: No Known Allergies Allergy (Verified 06/18/19 17:04) Review of Systems Constitutional: ABSENT: chills, fever(s) Eyes: ABSENT: visual disturbances, other - Eye pain Ears: ABSENT: hearing changes, other - Ear pain Nose, Mouth, and Throat: ABSENT: headache(s), sore throat Cardiovascular: ABSENT: chest pain, palpitations Respiratory: ABSENT: cough, dyspnea Gastrointestinal: ABSENT: abdominal pain, constipation, diarrhea, nausea, vomiting Genitourinary: ABSENT: dysuria, hematuria Musculoskeletal: PRESENT: as per HPI, other - Right foot swelling and pain. ABSENT: back pain, joint swelling Integumentary: PRESENT: as per HPI, erythema, wounds. ABSENT: pruritus, rash Neurological: ABSENT: confusion, convulsions, focal weakness, memory loss, syncope Psychiatric: ABSENT: anxiety, depression Endocrine: ABSENT: cold intolerance, heat intolerance, polydipsia, polyphagia, polyuria Hematologic/Lymphatic: ABSENT: easy bleeding, easy bruising Allergic/Immunologic: ABSENT: seasonal rhinorrhea Physical Exam Vital Signs: Temp Pulse Resp BP Pulse Ox 100.0 F 102 H 20 150/87 H 99 06/18/19 17:04 06/18/19 17:04 06/18/19 17:04 06/18/19 17:04 06/18/19 17:04 Intake & Output 06/16/19 06/17/19 06/18/19 23:59 23:59 23:59 Intake Total 1050 Balance 1050 Weight 67.2 kg General appearance: ABSENT: no acute distress, cooperative Head exam: ABSENT: atraumatic, normocephalic Eye exam: ABSENT: conjunctival injection, scleral icterus Ear exam: PRESENT: normal external ear exam. ABSENT: bleeding, drainage Mouth exam: PRESENT: dry mucosa, neck supple Neck exam: ABSENT: thyromegaly, tracheal deviation Respiratory exam: PRESENT: clear to auscultation isaac, symmetrical, unlabored Cardiovascular exam: PRESENT: RRR. ABSENT: clicks, gallop, rubs Pulses: PRESENT: normal carotid pulses, normal radial pulses Vascular exam: PRESENT: normal capillary refill. ABSENT: pallor GI/Abdominal exam: PRESENT: normal bowel sounds, soft. ABSENT: tenderness Rectal exam: PRESENT: deferred Extremities exam: PRESENT: pedal edema - Right foot with erythema and edema, tenderness - Right foot with tenderness to palpation. ABSENT: joint swelling Musculoskeletal exam: ABSENT: deformity, dislocation Neurological exam: PRESENT: alert, oriented to person, oriented to place, oriented to time, oriented to situation, CN II-XII grossly intact, motor sensory deficit - Decreased tactile sensation of the bilateral feet right worse than left Psychiatric exam: PRESENT: appropriate affect, normal mood Skin exam: PRESENT: dry, warm, other - Erythema and edema with local tenderness noted on the dorsal and plantar aspects of the right forefoot. Open ulcerations of the plantar aspect of the right foot are noted with foul-smelling purulent discharge.. ABSENT: jaundice, rash, urticaria Results Laboratory Results: 06/18/19 17:21 06/18/19 17:21 06/18/19 06/18/19 06/18/19 17:21 17:21 19:11 WBC 21.3 H RBC 4.08 L Hgb 12.8 L Hct 38.6 MCV 95 MCH 31.3 MCHC 33.1 RDW 13.6 Plt Count 276 Seg Neutrophils % Not Reportable Sodium 136.8 L Potassium 4.2 Chloride 100 Carbon Dioxide 25 Anion Gap 12 BUN 15 Creatinine 0.53 Est GFR ( Amer) > 60 Glucose 416 H* Lactic Acid 1.8 Calcium 9.1 Total Bilirubin 1.0 AST 37 Alkaline Phosphatase 167 H Total Protein 9.4 H Albumin 3.8 Impressions: Foot X-Ray 06/18/19 17:12 IMPRESSION: Osteopenia. There is no evidence of osteomyelitis. Assessment and Plan - Diagnosis (1) Cellulitis of right foot Is this a current diagnosis for this admission?: Yes (2) Diabetic foot ulcer associated with type 2 diabetes mellitus Qualifiers: Diabetic foot ulcer location: midfoot Laterality: right Non-pressure ulcer stage: unspecified non-pressure ulcer stage Qualified Code(s): E11.621 - Type 2 diabetes mellitus with foot ulcer; L97.419 - Non-pressure chronic ulcer of right heel and midfoot with unspecified severity Is this a current diagnosis for this admission?: Yes (3) Diabetes mellitus type 2 in nonobese Is this a current diagnosis for this admission?: Yes (4) Peripheral vascular disease in diabetes mellitus Is this a current diagnosis for this admission?: Yes (5) Hyperlipidemia Qualifiers: Hyperlipidemia type: unspecified Qualified Code(s): E78.5 - Hyperlipidemia, unspecified Is this a current diagnosis for this admission?: Yes (6) Hypertension Qualifiers: Hypertension type: unspecified Qualified Code(s): I10 - Essential (primary) hypertension Is this a current diagnosis for this admission?: Yes - Plan Summary Summary: Patient will be admitted to the medical floor where he will receive routine supportive and symptomatic cares. A surgical consultation will be obtained with Dr. Miguel. Patient will be treated with Zosyn and vancomycin as initial antibiotic therapy. Blood and wound cultures were obtained in ER and results are pending. Patient received morphine sulfate 2 to 4 mg IV every 2 hours on an as-needed basis for pain control. Patient will be treated with a cardiac and diabetic restricted diet. Before meals and at bedtime Accu-Cheks will be obtained with sliding scale insulin to cover hyperglycemia and a hypoglycemic protocol in place. A nicotine replacement patch will be available for the patient's use, if required. Patient will be continued on his usual medical regiment for his chronic medical illnesses as appropriate. CBCs, metabolic profiles and magnesium levels will be obtained on an as-needed basis. A lipid profile, hemoglobin A1c and TSH will be obtained. - Time Time Spent with patient: 35 or more minutes Smoking Cessation Education: 3 to 10 minutes Medications reviewed and adjusted accordingly: Yes Anticipated discharge: Home with Homehealth - Inpatient Certification Based on my medical assessment, after consideration of the patient's comorbidities, presenting symptoms, or acuity I expect that the services needed warrant INPATIENT care.: Yes I certify that my determination is in accordance with my understanding of Medicare's requirements for reasonable and necessary INPATIENT services [42 CFR 412.3e].: Yes Medical Necessity: Failure to Improve With Outpatient Therapy, Significant Comorbidiites Make Outpatient Treatment Too Risky, Need Close Monitoring Due to Risk of Patient Decompensation, Need for Pain Control, Need for IV Antibiotics, Need for Surgery, Risk of Complication if Not Cared For in Hospital
[2019-06-19] MEDS: VANCOMYCIN HCL 1,000 MG in DEXTROSE 5%-WATER 250 ML IV SCH ×3 (02:38→18:12)
[2019-06-19] MEDS: HEPARIN SOD (PORCINE) 5,000 UNIT/ML 1 ML VIAL SUBCUT SCH ×2 (05:50→13:13)
[2019-06-19] MEDS: PIPERACILLIN SODIUM/TAZOBACTAM 3.375 GM in NORMAL SALINE 100 ML IV SCH ×4 (06:06→23:18)
[2019-06-19 06:38] LABS: HEMATOCRIT 33.5 % (37.9-51.0); HEMOGLOBIN 11.4 g/dL (13.5-17.0); MEAN CORPUSCULAR HEMOGLOBIN 31.4 pg (27.0-33.4); MEAN CORPUSCULAR HGB CONC 33.9 g/dL (32.0-36.0); MEAN CORPUSCULAR VOLUME 93 fl (80-97); PLATELET COUNT 231 10^3/uL (150-450); RED BLOOD COUNT 3.61 10^6/uL (4.35-5.55); RED CELL DISTRIBUTION WIDTH 13.2 % (11.5-14.0); WHITE BLOOD COUNT 18.7 10^3/uL (4.0-10.5)
[2019-06-19 07:05] LABS: ANION GAP 7 (5-19); BLOOD UREA NITROGEN 9 mg/dL (7-20); CALCIUM 8.1 mg/dL (8.4-10.2); CARBON DIOXIDE 25 mmol/L (22-30); CHLORIDE 107 mmol/L (98-107); CHOLESTEROL 105.95 mg/dL (0-200); GLUCOSE 134 mg/dL (75-110); POTASSIUM 4.1 mmol/L (3.6-5.0); TRIGLYCERIDES 81 mg/dL (<150)
[2019-06-19 07:17] LABS: DIRECT LDL 79 mg/dL (<100)
[2019-06-19] MEDS ORDERED: FENTANYL CITRATE INJ/PF 100 MCG/2 ML AMPUL ONE (08:43)
[2019-06-19] MEDS ORDERED: MIDAZOLAM 2 MG/2 ML INJ ONE (08:43)
[2019-06-19] MEDS ORDERED: ONDANSETRON HCL INJ/PF 4 MG/2 ML SDV ONE (08:43)
[2019-06-19] MEDS ORDERED: PROPOFOL INJ 200 MG/20 ML VIAL IV ONE (08:45)
[2019-06-19] MEDS: DOCUSATE SODIUM 100 MG CAPSULE PO SCH ×2 (09:22→17:40)
[2019-06-19] MEDS: FAMOTIDINE 20 MG TABLET PO SCH ×2 (09:22→21:46)
--- NOTE | 2019-06-19 10:17 | PDOC PROGRESS REPORT ---
Subjective Progress Note for:: 06/19/19 Reason For Visit: CELLULITIS OF THE RIGHT FOOT,DIABETIC FOOT ULCER, 06/19/2019 Patient admitted for a cellulitis of the right foot Physical Exam Vital Signs: Temp Pulse Resp BP Pulse Ox 98.3 F 78 18 158/8 H 100 06/19/19 08:52 06/19/19 08:52 06/19/19 08:52 06/19/19 08:52 06/19/19 08:52 Intake & Output 06/18/19 06/19/19 06/20/19 06:59 06:59 06:59 Intake Total 2150 250 Output Total 400 Balance 1750 250 Weight 69.1 kg General appearance: PRESENT: no acute distress, well-developed, well-nourished Respiratory exam: PRESENT: clear to auscultation isaac. ABSENT: rales, rhonchi, wheezes Cardiovascular exam: PRESENT: RRR. ABSENT: diastolic murmur, rubs, systolic murmur Extremities exam: PRESENT: joint swelling, pedal edema, tenderness, +1 edema, other - Foot has a foul odor. Draining or purulent material from multiple sites Neurological exam: PRESENT: alert, awake, oriented to person, oriented to place, oriented to time, oriented to situation, CN II-XII grossly intact. ABSENT: motor sensory deficit Psychiatric exam: PRESENT: appropriate affect, normal mood. ABSENT: homicidal ideation, suicidal ideation Results Laboratory Results: 06/19/19 06:20 06/19/19 06:20 06/18/19 06/18/19 06/18/19 17:21 17:21 19:11 WBC 21.3 H RBC 4.08 L Hgb 12.8 L Hct 38.6 MCV 95 MCH 31.3 MCHC 33.1 RDW 13.6 Plt Count 276 Seg Neutrophils % Not Reportable Sodium 136.8 L Potassium 4.2 Chloride 100 Carbon Dioxide 25 Anion Gap 12 BUN 15 Creatinine 0.53 Est GFR ( Amer) > 60 Glucose 416 H* Lactic Acid 1.8 Calcium 9.1 Magnesium Total Bilirubin 1.0 AST 37 Alkaline Phosphatase 167 H Total Protein 9.4 H Albumin 3.8 Triglycerides Cholesterol LDL Cholesterol Direct VLDL Cholesterol HDL Cholesterol TSH Urine Color Urine Appearance Urine pH Ur Specific [place] Urine Protein Urine Glucose (UA) Urine Ketones Urine Blood Urine Nitrite Ur Leukocyte Esterase Urine WBC (Auto) Urine RBC (Auto) 06/18/19 06/18/19 06/19/19 20:23 22:03 01:21 WBC RBC Hgb Hct MCV MCH MCHC RDW Plt Count Seg Neutrophils % Sodium Potassium Chloride Carbon Dioxide Anion Gap BUN Creatinine Est GFR ( Amer) Glucose Lactic Acid 1.4 1.3 Calcium Magnesium Total Bilirubin AST Alkaline Phosphatase Total Protein Albumin Triglycerides Cholesterol LDL Cholesterol Direct VLDL Cholesterol HDL Cholesterol TSH Urine Color YELLOW Urine Appearance CLEAR Urine pH 5.0 Ur Specific [place] 1.025 Urine Protein 30 H Urine Glucose (UA) >=500 H Urine Ketones NEGATIVE Urine Blood NEGATIVE Urine Nitrite NEGATIVE Ur Leukocyte Esterase NEGATIVE Urine WBC (Auto) 1 Urine RBC (Auto) 1 06/19/19 06/19/19 06/19/19 06:20 06:20 06:20 WBC 18.7 H RBC 3.61 L Hgb 11.4 L Hct 33.5 L MCV 93 MCH 31.4 MCHC 33.9 RDW 13.2 Plt Count 231 Seg Neutrophils % Sodium 138.9 Potassium 4.1 Chloride 107 Carbon Dioxide 25 Anion Gap 7 BUN 9 Creatinine 0.46 L Est GFR ( Amer) > 60 Glucose 134 H Lactic Acid Calcium 8.1 L Magnesium 1.3 L Total Bilirubin AST Alkaline Phosphatase Total Protein Albumin Triglycerides 81 Cholesterol 105.95 LDL Cholesterol Direct 79 VLDL Cholesterol 16.0 HDL Cholesterol 18 L TSH 1.66 Urine Color Urine Appearance Urine pH Ur Specific [place] Urine Protein Urine Glucose (UA) Urine Ketones Urine Blood Urine Nitrite Ur Leukocyte Esterase Urine WBC (Auto) Urine RBC (Auto) Impressions: Foot X-Ray 06/18/19 17:12 IMPRESSION: Osteopenia. There is no evidence of osteomyelitis. Extremity Arterial Study 06/18/19 17:55 IMPRESSION: Findings suggestive of moderate to severe atheromatous disease with extensive atheromatous changes and diffusely monophasic waveforms throughout. copyright 2010 [id number]- All Rights Reserved Assessment and Plan - Diagnosis (1) Patient noncompliance Is this a current diagnosis for this admission?: Yes (2) Cellulitis of right foot Is this a current diagnosis for this admission?: Yes (3) Diabetes mellitus type 2 in nonobese Is this a current diagnosis for this admission?: Yes (4) Peripheral vascular disease in diabetes mellitus Is this a current diagnosis for this admission?: Yes (5) Hyperglycemia Is this a current diagnosis for this admission?: Yes (6) Leukocytosis Is this a current diagnosis for this admission?: Yes - Plan Summary Summary: Patient will be admitted to the medical floor where he will receive routine supportive and symptomatic cares. A surgical consultation will be obtained with Dr. Miguel. Patient will be treated with Zosyn and vancomycin as initial antibiotic therapy. Blood and wound cultures were obtained in ER and results are pending. Patient received morphine sulfate 2 to 4 mg IV every 2 hours on an as-needed basis for pain control. Patient will be treated with a cardiac and diabetic restricted diet. Before meals and at bedtime Accu-Cheks will be obtained with sliding scale insulin to cover hyperglycemia and a hypoglycemic protocol in place. A nicotine replacement patch will be available for the nathalie ent's use, if required. Patient will be continued on his usual medical regiment for his chronic medical illnesses as appropriate. CBCs, metabolic profiles and magnesium levels will be obtained on an as-needed basis. A lipid profile, hemoglobin A1c and TSH will be obtained. 06/19/2019 TSH 1.66, normal hemoglobin A1c 8.8, elevated, fingerstick blood sugar 184, renal functions normal, coag studies normal. Admission white blood cell count 21,300 repeat study 12 hours later 18,700 Wound culture pending blood cultures pending Patient was seen by general surgery and is going to the OR for debridement Patient currently on Zosyn every 6 hours and vancomycin every 8 hours, day #2 Patient tells me he stepped on the thumbtack about 1 year ago and removed it in its entirety. Patient tells me about 6 months ago he started noticing pain in his foot as well as swelling. Patient tells me about 3 months ago it became quite painful to bear weight and he noticed a foul odor coming from his foot. P catherine tells me he came to the emergency room because of the severe pain and the worsening of his edema and the odor was becoming stronger. Patient has continued to work up until this week where he stands 12 hours a day - Time Time Spent with patient: 25-34 minutes
[2019-06-19] MEDS ORDERED: ONDANSETRON HCL INJ/PF 4 MG/2 ML SDV IV PRN (10:31)
[2019-06-19] MEDS ORDERED: PROMETHAZINE HCL INJ 25 MG/1 ML VIAL IV PRN (10:31)
[2019-06-19] MEDS ORDERED: DIPHENHYDRAMINE HCL 50 MG/ML VIAL IV PRN (10:31)
[2019-06-19] MEDS ORDERED: FENTANYL CITRATE INJ/PF 100 MCG/2 ML AMPUL IV PRN ×3 (10:31)
[2019-06-19] MEDS ORDERED: MEPERIDINE HCL/PF INJ 25 MG/1 ML DISP.SYRIN IV PRN (10:31)
[2019-06-19] MEDS ORDERED: OXYCODONE-ACETAMINOPHEN 5-325 MG TABLET PO PRN ×2 (10:31)
[2019-06-19] MEDS ORDERED: MORPHINE SULFATE 10 MG/ML INJ IV PRN (10:31)
--- NOTE | 2019-06-19 10:40 | Operative Report ---
Nonrecallable Operative Report DATE OF SURGERY: 06/19/19 PREOPERATIVE DIAGNOSIS: Right diabetic foot infection POSTOPERATIVE DIAGNOSIS: Right diabetic foot infection OPERATION: Right below the knee amputation SURGEON: AMMY HENDRIX ANESTHESIA: Spinal TISSUE REMOVED OR ALTERED: Right leg below the knee COMPLICATIONS: None ESTIMATED BLOOD LOSS: 150 cc INTRAOPERATIVE FINDINGS: See dictation PROCEDURE: Procedure note. After appropriate timeout and site verification the procedure commenced. The right leg was prepped from mid thigh to the foot. A racquet incision was made approximately 12 cm below the pubic tubercle dissection was carried down through subcutaneous tissue with a knife. C ircumferentially we we created the incision. Then using Bovie cautery inside the deep subcu and fascia on the medial aspect identifying the saphenous vein and posterior saphenous vein divided those and between Salma clamps. We created our incision in the muscle with Bovie cautery dividing the gastrocnemius muscle posteriorly laterally we continued with Bovie cautery divided the posterior tibial nerve sharply with the 10 blade. Small vessels that were bleeding at the from the edge of the nerve were controlled with Bovie cautery. The posterior popliteal artery and vein were divided between Aslma clamps. We continued our dissection posteriorly dividing the deep muscles. We then used the periosteal elevator and elevated the periosteum on the tibia and fibula proximally and then divided those bones with the bone saw. We then came across the rest of the deep muscles with Bovie cautery remove the specimen. The popliteal vessels were controlled with [id number] placed suture ligat ures of 2-0 Vicryl. The saphenous veins were controlled with free ties of 2-0 Vicryl. We then reapproximated the gastrocnemius muscle from posterior to anterior on top of the tibia with interrupted 2-0 Vicryl sutures. The deep subcu was reapproximated similarly. The skin was then reapproximated standard skin clips. Estimated blood loss was approximately 150 cc sponge needle counts were correct x2 the patient was transferred recovery in stable condition
[2019-06-19] MEDS: MORPHINE SULFATE 10 MG/ML INJ IV PRN ×3 (13:10→18:18)
[2019-06-19] MEDS: INSULIN REG, HUMAN 100 UNIT/ML 3 ML VIAL (PYX) SUBCUT PRN ×2 (16:47→21:46)
--- NOTE | 2019-06-19 19:56 | EKG REPORT ---
SEVERITY:- BORDERLINE ECG - SINUS RHYTHM PROBABLE LEFT ATRIAL ABNORMALITY : Confirmed by: Serenity Cavazos MD 19-Jun-2019 19:55:23
[2019-06-20] MEDS: VANCOMYCIN HCL 1,000 MG in DEXTROSE 5%-WATER 250 ML IV SCH ×3 (02:10→21:21)
[2019-06-20] MEDS: PIPERACILLIN SODIUM/TAZOBACTAM 3.375 GM in NORMAL SALINE 100 ML IV SCH ×4 (05:46→23:05)
[2019-06-20 06:14] LABS: HEMATOCRIT 31.9 % (37.9-51.0); HEMOGLOBIN 10.8 g/dL (13.5-17.0); MEAN CORPUSCULAR HEMOGLOBIN 31.4 pg (27.0-33.4); MEAN CORPUSCULAR HGB CONC 33.7 g/dL (32.0-36.0); MEAN CORPUSCULAR VOLUME 93 fl (80-97); PLATELET COUNT 252 10^3/uL (150-450); RED BLOOD COUNT 3.43 10^6/uL (4.35-5.55); RED CELL DISTRIBUTION WIDTH 13.5 % (11.5-14.0)
[2019-06-20] MEDS: DOCUSATE SODIUM 100 MG CAPSULE PO SCH ×2 (09:03→17:56)
[2019-06-20] MEDS: FAMOTIDINE 20 MG TABLET PO SCH ×2 (09:03→21:19)
--- NOTE | 2019-06-20 10:38 | PDOC PROGRESS REPORT ---
Subjective Progress Note for:: 06/20/19 Reason For Visit: CELLULITIS OF THE RIGHT FOOT,DIABETIC FOOT ULCER, 06/20/2019 Cellulitis of the right foot, diabetes uncontrolled Physical Exam Vital Signs: Temp Pulse Resp BP Pulse Ox 99.1 F 90 19 131/71 H 97 06/20/19 05:17 06/20/19 05:17 06/20/19 05:17 06/20/19 05:17 06/20/19 05:17 Intake & Output 06/19/19 06/20/19 06/21/19 06:59 06:59 06:59 Intake Total 2150 2460 Output Total 400 425 Balance 1750 2034 Weight 69.1 kg 68.9 kg General appearance: PRESENT: no acute distress Respiratory exam: PRESENT: clear to auscultation isaac. ABSENT: rales, rhonchi, wheezes Cardiovascular exam: PRESENT: RRR. ABSENT: diastolic murmur, rubs, systolic murmur Extremities exam: PRESENT: other - Dressing appears dry Neurological exam: PRESENT: alert, awake, oriented to person, oriented to place, oriented to time, oriented to situation, CN II-XII grossly intact. ABSENT: motor sensory deficit Psychiatric exam: PRESENT: appropriate affect, normal mood. ABSENT: homicidal ideation, suicidal ideation Results Laboratory Results: 06/20/19 06:04 06/19/19 06:20 06/20/19 06:04 WBC 15.0 H RBC 3.43 L Hgb 10.8 L Hct 31.9 L MCV 93 MCH 31.4 MCHC 33.7 RDW 13.5 Plt Count 252 Impressions: Foot X-Ray 06/18/19 17:12 IMPRESSION: Osteopenia. There is no evidence of osteomyelitis. Extremity Arterial Study 06/18/19 17:55 IMPRESSION: Findings suggestive of moderate to severe atheromatous disease with extensive atheromatous changes and diffusely monophasic waveforms throughout. copyright 2011 [employer]- All Rights Reserved Assessment and Plan - Diagnosis (1) Patient noncompliance Is this a current diagnosis for this admission?: Yes (2) Cellulitis of right foot Is this a current diagnosis for this admission?: Yes (3) Diabetes mellitus type 2 in nonobese Is this a current diagnosis for this admission?: Yes (4) Peripheral vascular disease in diabetes mellitus Is this a current diagnosis for this admission?: Yes (5) Hyperglycemia Is this a current diagnosis for this admission?: Yes (6) Leukocytosis Is this a current diagnosis for this admission?: Yes - Plan Summary Summary: Patient will be admitted to the medical floor where he will receive routine supportive and symptomatic cares. A surgical consultation will be obtained with Dr. Miguel. Patient will be treated with Zosyn and vancomycin as initial antib iotic therapy. Blood and wound cultures were obtained in ER and results are pending. Patient received morphine sulfate 2 to 4 mg IV every 2 hours on an as- needed basis for pain control. Patient will be treated with a cardiac and diabetic restricted diet. Before meals and at bedtime Accu-Cheks will be obtained with sliding scale insulin to cover hyperglycemia and a hypoglycemic protocol in place. A nicotine replacement patch will be available for the patient's use, if required. Patient will be continued on his usual medical regiment for his chronic medical illnesses as appropriate. CBCs, metabolic profiles and magnesium levels will be obtained on an as-needed basis. A lipid profile, hemoglobin A1c and TSH will be obtained. 06/19/2019 TSH 1.66, normal hemoglobin A1c 8.8, elevated, fingerstick blood sugar 184, renal functions normal, coag studies normal. Admission white blood cell count 21,300 repeat study 12 hours later 18,700 Wound culture pending blood cultures pending Patient was seen by general surgery and is going to the OR for debridement Patient currently on Zosyn every 6 hours and vancomycin every 8 hours, day #2 Patient tells me he stepped on the thumbtack about 1 year ago and removed it in its entirety. Patient tells me about 6 months ago he started noticing pain in his foot as well as swelling. Patient tells me about 3 months ago it became quite painful to bear weight and he noticed a foul odor coming from his foot. Patient tells me he came to the emergency room because of the severe pain and the worsening of his edema and the odor was becoming stronger. Patient has continued to work up until this week where he stands 12 hours a day 06/20/2019 Patient has no complaints this morning. Asked him if he was suspecting that his foot and leg was bad enough to be amputated and he stated that he had that concern " for a while now". Patient's temperature is 99.1 pulse is 90. Pressure 131/71 and his oxygen saturation is 97% on room air [place] white blood cell count was 21.3 today it is 15.0 Admission glucose was 416 and A1c is 8.8. His fingerstick blood sugars are running anywhere from 1 70-2 83 on a sliding scale of insulin Patient was reportedly on no home medications Patient is currently on Zosyn and vancomycin postop I started patient on Lantus 6 units every 12 hours. I have put an order in for diabetic teaching to come by and talk to him. Postop day #1 - Time Time Spent with patient: 25-34 minutes
[2019-06-20 10:40] LABS: VANCOMYCIN,TROUGH 27.3 ug/mL (5.0-20.0)
[2019-06-20] MEDS: POLYETHYLENE GLYCOL 3350 POWDER 17 GM/1 PACKET PO SCH (10:44)
[2019-06-20] MEDS: INSULIN GLARGINE,HUM.REC.ANLOG 1,000 UNIT/10 ML VIAL SUBCUT SCH ×2 (11:10→21:20)
[2019-06-20] MEDS ORDERED: INSULIN GLARGINE,HUM.REC.ANLOG 1,000 UNIT/10 ML VIAL (PYX) SUBCUT ONE (12:00)
[2019-06-20] MEDS: INSULIN REG, HUMAN 100 UNIT/ML 3 ML VIAL (PYX) SUBCUT PRN (12:19)
[2019-06-20] MEDS: MORPHINE SULFATE 10 MG/ML INJ IV PRN ×2 (12:40→17:56)
--- NOTE | 2019-06-20 14:52 | PDOC PROGRESS REPORT ---
Subjective Progress Note for:: 06/20/19 Reason For Visit: CELLULITIS OF THE RIGHT FOOT,DIABETIC FOOT ULCER, Physical Exam Vital Signs: Temp Pulse Resp BP Pulse Ox 99.6 F 86 18 154/83 H 97 06/20/19 10:45 06/20/19 10:45 06/20/19 10:45 06/20/19 10:45 06/20/19 10:45 Intake & Output 06/19/19 06/20/19 06/21/19 06:59 06:59 06:59 Intake Total 2150 2460 350 Output Total 400 425 Balance 1750 2035 350 Weight 69.1 kg 68.9 kg Results Laboratory Results: 06/20/19 06:04 06/19/19 06:20 06/20/19 06:04 WBC 15.0 H RBC 3.43 L Hgb 10.8 L Hct 31.9 L MCV 93 MCH 31.4 MCHC 33.7 RDW 13.5 Plt Count 252 Impressions: Foot X-Ray 06/18/19 17:12 IMPRESSION: Osteopenia. There is no evidence of osteomyelitis. Extremity Arterial Study 06/18/19 17:55 IMPRESSION: Findings suggestive of moderate to severe atheromatous disease with extensive atheromatous changes and diffusely monophasic waveforms throughout. copyright 2011 [employer]- All Rights Reserved Assessment & Plan - Diagnosis (2) Diabetic foot ulcer associated with type 2 diabetes mellitus Qualifiers: Diabetic foot ulcer location: midfoot Laterality: right Non-pressure ulcer stage: unspecified non-pressure ulcer stage Qualified Code(s): E11.621 - Type 2 diabetes mellitus with foot ulcer; L97.419 - Non-pressure chronic ulcer of right heel and midfoot with unspecified severity Is this a current diagnosis for this admission?: Yes - Plan Summary Plan Summary: This is a 53-year-old diabetic male with a severe diabetic right foot infection. He is status post BKA. The patient reports acute pain and phantom pain. I will add gabapentin to assist with this. Wear knee immobilizer while in bed and sleeping. Surgery will follow.
[2019-06-20] MEDS: IBUPROFEN 800 MG TABLET PO SCH (16:30)
[2019-06-20] MEDS: INSULIN REG, HUMAN 100 UNIT/ML 3 ML VIAL (PYX) SUBCUT SCH ×2 (16:30→21:20)
[2019-06-20] MEDS: GABAPENTIN 300 MG CAPSULE PO SCH (17:56)
[2019-06-20] MEDS: HYDROCODONE/ACETAMINOPHEN 10-325 MG TABLET PO PRN (21:19)
[2019-06-21 05:11] LABS: HEMOGLOBIN 9.6 g/dL (13.5-17.0); MEAN CORPUSCULAR HEMOGLOBIN 31.1 pg (27.0-33.4); MEAN CORPUSCULAR HGB CONC 33.1 g/dL (32.0-36.0); MEAN CORPUSCULAR VOLUME 94 fl (80-97); PLATELET COUNT 242 10^3/uL (150-450); RED BLOOD COUNT 3.08 10^6/uL (4.35-5.55); RED CELL DISTRIBUTION WIDTH 12.9 % (11.5-14.0); WHITE BLOOD COUNT 13.5 10^3/uL (4.0-10.5)
[2019-06-21] MEDS: PIPERACILLIN SODIUM/TAZOBACTAM 3.375 GM in NORMAL SALINE 100 ML IV SCH ×3 (05:27→17:09)
[2019-06-21] MEDS: HYDROCODONE/ACETAMINOPHEN 10-325 MG TABLET PO PRN ×4 (05:29→20:17)
--- NOTE | 2019-06-21 07:35 | PDOC PROGRESS REPORT ---
Subjective Progress Note for:: 06/21/19 Subjective:: feels ok, min pain Reason For Visit: CELLULITIS OF THE RIGHT FOOT,DIABETIC FOOT ULCER, Physical Exam Vital Signs: Temp Pulse Resp BP Pulse Ox 97.8 F 75 18 116/80 98 06/20/19 23:40 06/20/19 23:40 06/20/19 23:40 06/20/19 23:40 06/20/19 23:40 Intake & Output 06/20/19 06/21/19 06/22/19 06:59 06:59 06:59 Intake Total 2460 1520 Output Total 425 900 Balance 2034 620 Weight 68.9 kg 69 kg General appearance: PRESENT: no acute distress Head exam: PRESENT: normocephalic Eye exam: PRESENT: EOMI Ear exam: PRESENT: normal external ear exam Mouth exam: PRESENT: moist Neck exam: PRESENT: full ROM Respiratory exam: PRESENT: clear to auscultation isaac Cardiovascular exam: PRESENT: RRR Pulses: PRESENT: normal radial pulses Breast: PRESENT: Normal GI/Abdominal exam: PRESENT: soft Rectal exam: PRESENT: deferred Extremities exam: PRESENT: other - rt stump incision clean, redressed warm. Neurological exam: PRESENT: alert, awake, oriented to person, oriented to place Psychiatric exam: PRESENT: appropriate affect Skin exam: PRESENT: dry Results Laboratory Results: 06/21/19 04:40 06/19/19 06:20 06/21/19 04:40 WBC 13.5 H RBC 3.08 L Hgb 9.6 L Hct 29.0 L MCV 94 MCH 31.1 MCHC 33.1 RDW 12.9 Plt Count 242 Impressions: Foot X-Ray 06/18/19 17:12 IMPRESSION: Osteopenia. There is no evidence of osteomyelitis. Extremity Arterial Study 06/18/19 17:55 IMPRESSION: Findings suggestive of moderate to severe atheromatous disease with extensive atheromatous changes and diffusely monophasic waveforms throughout. copyright 2011 [employer]- All Rights Reserved Assessment & Plan - Plan Summary Plan Summary: s/p rt bka doing well stump clean, no drainage warm\ plan physical rx today.
[2019-06-21] MEDS: DOCUSATE SODIUM 100 MG CAPSULE PO SCH ×2 (09:18→17:06)
[2019-06-21] MEDS: FAMOTIDINE 20 MG TABLET PO SCH ×2 (09:18→21:48)
[2019-06-21] MEDS: IBUPROFEN 800 MG TABLET PO SCH ×3 (09:18→17:03)
[2019-06-21] MEDS: GABAPENTIN 300 MG CAPSULE PO SCH ×3 (09:18→17:03)
[2019-06-21] MEDS: INSULIN GLARGINE,HUM.REC.ANLOG 1,000 UNIT/10 ML VIAL SUBCUT SCH ×3 (09:19→23:33)
[2019-06-21] MEDS: INSULIN REG, HUMAN 100 UNIT/ML 3 ML VIAL (PYX) SUBCUT SCH ×4 (09:19→22:17)
[2019-06-21] MEDS: VANCOMYCIN HCL 1,000 MG in DEXTROSE 5%-WATER 250 ML IV SCH ×2 (09:20→22:18)
[2019-06-21] MEDS: POLYETHYLENE GLYCOL 3350 POWDER 17 GM/1 PACKET PO SCH (09:20)
--- NOTE | 2019-06-21 14:46 | PDOC PROGRESS REPORT ---
Subjective Progress Note for:: 06/21/19 Reason For Visit: CELLULITIS OF THE RIGHT FOOT,DIABETIC FOOT ULCER, 06/21/2019 Lightest of the right foot, diabetes uncontrolled Physical Exam Vital Signs: Temp Pulse Resp BP Pulse Ox 98.5 F 77 14 142/44 H 98 06/21/19 12:00 06/21/19 12:00 06/21/19 12:00 06/21/19 08:25 06/21/19 12:00 Intake & Output 06/20/19 06/21/19 06/22/19 06:59 06:59 06:59 Intake Total 2460 1520 1021 Output Total 425 900 350 Balance 2035 620 671 Weight 68.9 kg 69 kg General appearance: PRESENT: no acute distress Respiratory exam: PRESENT: clear to auscultation isaac. ABSENT: rales, rhonchi, wheezes Cardiovascular exam: PRESENT: RRR. ABSENT: diastolic murmur, rubs, systolic murmur Extremities exam: PRESENT: other - Dressing dry and intact Neurological exam: PRESENT: alert, awake, oriented to person, oriented to place, oriented to time, oriented to situation, CN II-XII grossly intact. ABSENT: motor sensory deficit Psychiatric exam: PRESENT: appropriate affect, normal mood, other - Surprisingly good spirits for his situation. ABSENT: homicidal ideation, suicidal ideation Results Laboratory Results: 06/21/19 04:40 06/19/19 06:20 06/21/19 04:40 WBC 13.5 H RBC 3.08 L Hgb 9.6 L Hct 29.0 L MCV 94 MCH 31.1 MCHC 33.1 RDW 12.9 Plt Count 242 Impressions: Foot X-Ray 06/18/19 17:12 IMPRESSION: Osteopenia. There is no evidence of osteomyelitis. Extremity Arterial Study 06/18/19 17:55 IMPRESSION: Findings suggestive of moderate to severe atheromatous disease with extensive atheromatous changes and diffusely monophasic waveforms throughout. copyright 2011 [employer]- All Rights Reserved Assessment and Plan - Diagnosis (1) Patient noncompliance Is this a current diagnosis for this admission?: Yes (2) Cellulitis of right foot Is this a current diagnosis for this admission?: Yes (3) Diabetes mellitus type 2 in nonobese Is this a current diagnosis for this admission?: Yes (4) Peripheral vascular disease in diabetes mellitus Is this a current diagnosis for this admission?: Yes (5) Hyperglycemia Is this a current diagnosis for this admission?: Yes (6) Leukocytosis Is this a current diagnosis for this admission?: Yes - Plan Summary Summary: Patient will be admitted to the medical floor where he will receive routine supportive and symptomatic cares. A surgical consultation will be obtained with Dr. Miguel. Patient will be treated with Zosyn and vancomycin as initial antibiotic therapy. Blood and wound cultures were obtained in ER and results are pending. Patient received morphine sulfate 2 to 4 mg IV every 2 hours on an as-needed basis for pain control. Patient will be treated with a cardiac and diabetic restricted diet. Before meals and at bedtime Accu-Cheks will be obtained with sliding scale insulin to cover hyperglycemia and a hypoglycemic protocol in place. A nicotine replacement patch will be available for the patient's use, if required. Patient will be continued on his usual medical aroldo ment for his chronic medical illnesses as appropriate. CBCs, metabolic profiles and magnesium levels will be obtained on an as-needed basis. A lipid profile, hemoglobin A1c and TSH will be obtained. 06/19/2019 TSH 1.66, normal hemoglobin A1c 8.8, elevated, fingerstick blood sugar 184, renal functions normal, coag studies normal. Admission white blood cell count 21,300 repeat study 12 hours later 18,700 Wound culture pending blood cultures pending Patient was seen by general surgery and is going to the OR for debridement Patient currently on Zosyn every 6 hours and vancomycin every 8 hours, day #2 Patient tells me he stepped on the thumbtack about 1 year ago and removed it in its entirety. Patient tells me about 6 months ago he started noticing pain in his foot as well as swelling. Patient tells me about 3 months ago it became quite painful to bear weight and he noticed a foul odor coming from his foot. Patient tells me he came to the emergency room because of the severe pain and the worsening of his edema and the odor was becoming stronger. Patient has continued to work up until this week where he stands 12 hours a day 06/20/2019 Patient has no complaints this morning. Asked him if he was suspecting that his foot and leg was bad enough to be amputated and he stated that he had that concern " for a while now". Patient's temperature is 99.1 pulse is 90. Pressure 131/71 and his oxygen saturation is 97% on room air [place] white blood cell count was 21.3 today it is 15.0 Admission glucose was 416 and A1c is 8.8. His fingerstick blood sugars are running anywhere from 170-283 on a sliding scale of insulin Patient was reportedly on no home medications Patient is currently on Zosyn and vancomycin postop I started patient on Lantus 6 units every 12 hours. I have put an order in for diabetic teaching to come by and talk to him. Postop day #1 06/21/2019 Vital signs are stable he is afebrile on admission white count 21.3 is come down to 13.5 Blood sugars appear to be better controlled averaging around 150 or 160 Wound cultures growing out Proteus which appears to be sensitive to everything Cultures are negative x48 hours On IV vancomycin and Zosyn Postop day 2 Physical therapy is to start today gait assistance and ambulation training Patient is having diabetic teaching today with nutrition Discharge when general surgery feels patient is stable and when glucose levels are consistent - Time Time Spent with patient: 15-24 minutes
[2019-06-21] MEDS: INSULIN REG, HUMAN 100 UNIT/ML 3 ML VIAL (PYX) SUBCUT PRN (21:46)
[2019-06-21 22:47] LABS: VANCOMYCIN,TROUGH 43.7 ug/mL (5.0-20.0)
[2019-06-22] MEDS: PIPERACILLIN SODIUM/TAZOBACTAM 3.375 GM in NORMAL SALINE 100 ML IV SCH ×4 (00:40→17:30)
[2019-06-22] MEDS: HYDROCODONE/ACETAMINOPHEN 10-325 MG TABLET PO PRN ×3 (05:08→13:36)
[2019-06-22] MEDS: IBUPROFEN 800 MG TABLET PO SCH ×3 (09:17→17:29)
[2019-06-22] MEDS: FAMOTIDINE 20 MG TABLET PO SCH (09:17)
[2019-06-22] MEDS: GABAPENTIN 300 MG CAPSULE PO SCH ×3 (09:18→17:30)
[2019-06-22] MEDS: DOCUSATE SODIUM 100 MG CAPSULE PO SCH ×2 (09:21→17:29)
[2019-06-22] MEDS: INSULIN REG, HUMAN 100 UNIT/ML 3 ML VIAL (PYX) SUBCUT SCH ×3 (09:21→17:29)
[2019-06-22] MEDS: INSULIN GLARGINE,HUM.REC.ANLOG 1,000 UNIT/10 ML VIAL SUBCUT SCH (09:23)
[2019-06-22] MEDS: POLYETHYLENE GLYCOL 3350 POWDER 17 GM/1 PACKET PO SCH (09:24)
[2019-06-22 16:05] VITALS: BP 130/76
--- NOTE | 2019-06-22 19:07 | PDOC DISCHARGE SUMMARY ---
Impression - Admit/DC Date/PCP Admission Date/Primary Care Provider: 06/18/19 20:13 Discharge Date: 06/22/19 - Discharge Diagnosis (1) Cellulitis of right foot Is this a current diagnosis for this admission?: Yes (2) Diabetes mellitus type 2 in nonobese Is this a current diagnosis for this admission?: Yes (3) Hyperglycemia Is this a current diagnosis for this admission?: Yes (4) Leukocytosis Is this a current diagnosis for this admission?: Yes (5) Patient noncompliance Is this a current diagnosis for this admission?: Yes (6) Peripheral vascular disease in diabetes mellitus Is this a current diagnosis for this admission?: Yes - Additional Information Resuscitation Status: Full Code Discharge Diet: Diabetic Discharge Activity: Activity As Tolerated, Balance Activity w/Rest, Slowly Increase Activity, Supervised Activity Referrals: [facility] [Provider Group] - 06/30/19 9:15 am (Follow up with Dr. HENDRIX in 10 days.) Prescriptions: Sulfamethoxazole/Trimethoprim [Bactrim Ds Tablet] 1 each PO BID #14 tablet Metformin HCl [Glucophage] 500 mg PO BIDACBS #60 tablet Gabapentin [Neurontin 300 mg Capsule] 300 mg PO TID #90 capsule Nicotine [Nicoderm 21 mg/24 Hr Transderm Patch] 1 each TD DAILYP PRN #30 patch.td24 PRN Reason: Hydrocodone/Acetaminophen [Eucha 10-325 mg Tablet] 1 tab PO Q4HP PRN #20 tablet PRN Reason: Home Medications: Docusate Sodium [Colace 100 mg Capsule] 100 mg PO BID capsule 06/22/19 Gabapentin [Neurontin 300 mg Capsule] 300 mg PO TID #90 capsule 06/22/19 Hydrocodone/Acetaminophen [[place]ucha 10-325 mg Tablet] 1 tab PO Q4HP PRN #20 tablet 06/22/19 Ibuprofen [Motrin 800 mg Tablet] 800 mg PO MEALS tablet 06/22/19 Melatonin [Melatonin 5 mg Tablet] 5 mg PO HSP PRN tablet 06/22/19 Metformin HCl [Glucophage] 500 mg PO BIDACBS #60 tablet 06/22/19 Nicotine [Nicoderm 21 mg/24 Hr Transderm Patch] 1 each TD DAILYP PRN #30 patch.td24 06/22/19 Sulfamethoxazole/Trimethoprim [Bactrim Ds Tablet] 1 each PO BID #14 tablet 06/22/19 History of Present Illiness History of Present Illness: Per H&P by Dr. Sky: COLLIN CRUZ is a 53 year old male who presented to the emergency room with a 10-month history of right foot pain. He admits having developed an ulceration on the sole of his foot after stepping on attack 10 months ago. His foot wound has gradually worsened and has been treated at the wound care clinic. He was placed on antibiotics (Augmentin) 1 month ago and took a 20-day course. His wound has not improved with antibiotic therapy, his pain/tenderness has increased to moderate-severe in intensity, the forefoot area has become more swollen, the skin of the forefoot and toes has become more erythematous and a very minimal purulent discharge with a foul odor has been noted. He describes the pain as a constant, nonradiating aching soreness worsened by weightbearing or palpation of the area. He denies other associated or accompanying signs and symptoms. He denies prior similar episodes. He has not identified any additional aggravating or ameliorating factors for his right foot pain. In the ER he was found to have a leukocytosis and foul-smelling plantar surface ulcers of the right forefoot. Osteomyelitis was ruled out by radiography. Patient was subsequently admitted to the hospital for further evaluation and treatment. Hospital Course Hospital Course: obtained with Dr. Miguel. Patient will be treated with Zosyn and vancomycin as initial antibiotic therapy. Blood and wound cultures were obtained in ER and results are pending. Patient received morphine sulfate 2 to 4 mg IV every 2 hours on an as-needed basis for pain control. Patient will be treated with a cardiac and diabetic restricted diet. Before meals and at bedtime Accu-Cheks will be obtained with sliding scale insulin to cover hyperglycemia and a hypoglycemic protocol in place. A nicotine replacement patch will be available for the patient's use, if required. Patient will be continued on his usual medical regiment for his chronic medical illnesses as appropriate. CBCs, metabolic profiles and magnesium levels will be obtained on an as-needed basis. A lipid profile, hemoglobin A1c and TSH will be obtained. 06/19/2019 TSH 1.66, normal hemoglobin A1c 8.8, elevated, fingerstick blood sugar 184, renal functions normal, coag studies normal. Admission white blood cell count 21,300 repeat study 12 hours later 18,700 Wound culture pending blood cultures pending Patient was seen by general surgery and is going to the OR for debridement Patient currently on Zosyn every 6 hours and vancomycin every 8 hours, day #2 Patient tells me he stepped on the thumbtack about 1 year ago and removed it in its entirety. Patient tells me about 6 months ago he started noticing pain in his foot as well as swelling. Patient tells me about 3 months ago it became quite painful to bear weight and he noticed a foul odor coming from his foot. Patient tells me he came to the emergency room because of the severe pain and the worsening of his edema and the odor was becoming stronger. Patient has continued to work up until this week where he stands 12 hours a day 06/20/2019 Patient has no complaints this morning. Asked him if he was suspecting that his foot and leg was bad enough to be amputated and he stated that he had that concern " for a while now". Patient's temperature is 99.1 pulse is 90. Pressure 131/71 and his oxygen saturation is 97% on room air [place] white blood cell count was 21.3 today it is 15.0 Admission glucose was 416 and A1c is 8.8. His fingerstick blood sugars are running anywhere from 170-283 on a sliding scale of insulin Patient was reportedly on no home medications Patient is currently on Zosyn and vancomycin postop I started patient on Lantus 6 units every 12 hours. I have put an order in for diabetic teaching to come by and talk to him. Postop day #1 06/21/2019 Vital signs are stable he is afebrile on admission white count 21.3 is come down to 13.5 Blood sugars appear to be better controlled averaging around 150 or 160 Wound cultures growing out Proteus which appears to be sensitive to everything Cultures are negative x48 hours On IV vancomycin and Zosyn Postop day 2 Physical therapy is to start today gait assistance and ambulation training Patient is having diabetic teaching today with nutrition Discharge when general surgery feels patient is stable and when glucose levels are consistent 06/22/19 PT/OT consulted; patient ambulated 80 feet with front wheel walker. PT recommends d/c to home with home health services. Discussed with surgery; per Dr. Hendrix, patient is stable for d/c to home. Patient to follow up in the office in 10 days. He is discharged home on PO Bactrim twice daily for an additional 7 days. He is strongly encouraged to continue his diabetic diet and metformin. Patient to follow up with his PCP within 1 week for further management of diabetes. Patient was offered d/c to SNF for continued rehab; he was adamant regarding d/c to home with home services. Arrangements were made for patient to receive home health nursing, PT/OT, SW, front wheel walker, and shower chair. He is discharged home in stable condition. Physical Exam Vital Signs: Temp Pulse Resp BP Pulse Ox 97.9 F 72 16 130/76 H 98 06/22/19 14:57 06/22/19 14:57 06/22/19 14:57 06/22/19 14:57 06/22/19 14:57 Intake & Output 06/21/19 06/22/19 06/23/19 06:59 06:59 06:59 Intake Total 1520 2721 600 Output Total 900 350 950 Balance 620 2371 -350 Weight 69 kg 69 kg General appearance: PRESENT: no acute distress, cooperative, well-developed, well-nourished Head exam: PRESENT: atraumatic, normocephalic Eye exam: PRESENT: conjunctiva pink, EOMI, PERRLA. ABSENT: scleral icterus Ear exam: PRESENT: normal external ear exam Mouth exam: PRESENT: moist, tongue midline Respiratory exam: PRESENT: clear to auscultation isaac, symmetrical, unlabored. ABSENT: rales, rhonchi, wheezes Cardiovascular exam: PRESENT: RRR, +S1, +S2. ABSENT: diastolic murmur, rubs, systolic murmur Pulses: PRESENT: normal dorsalis pedis pul - left Extremities exam: PRESENT: full ROM, other - Right BKA. ABSENT: calf tenderness, clubbing, pedal edema Neurological exam: PRESENT: alert, awake, oriented to person, oriented to place, oriented to time, oriented to situation, CN II-XII grossly intact. ABSENT: motor sensory deficit Psychiatric exam: PRESENT: appropriate affect, normal mood. ABSENT: homicidal ideation, suicidal ideation Skin exam: PRESENT: dry, warm. ABSENT: cyanosis, intact - surgical incision to R BKA, rash Results Laboratory Results: WBC 13.5 10^3/uL (4.0-10.5) H 06/21/19 04:40 RBC 3.08 10^6/uL (4.35-5.55) L 06/21/19 04:40 Hgb 9.6 g/dL (13.5-17.0) L 06/21/19 04:40 Hct 29.0 % (37.9-51.0) L 06/21/19 04:40 MCV 94 fl (80-97) 06/21/19 04:40 MCH 31.1 pg (27.0-33.4) 06/21/19 04:40 MCHC 33.1 g/dL (32.0-36.0) 06/21/19 04:40 RDW 12.9 % (11.5-14.0) 06/21/19 04:40 Plt Count 242 10^3/uL (150-450) 06/21/19 04:40 Lymph % (Auto) Not Reportable 06/18/19 17:21 [place] % (Auto) Not Reportable 06/18/19 17:21 Eos % (Auto) Not Reportable 06/18/19 17:21 Baso % (Auto) Not Reportable 06/18/19 17:21 Absolute Neuts (auto) Not Reportable 06/18/19 17:21 Absolute Lymphs (auto) Not Reportable 06/18/19 17:21 Absolute Monos (auto) Not Reportable 06/18/19 17:21 Absolute Eos (auto) Not Reportable 06/18/19 17:21 Absolute Basos (auto) Not Reportable 06/18/19 17:21 Total Counted 100 06/18/19 17:21 Seg Neutrophils % Not Reportable 06/18/19 17:21 Seg Neuts % (Manual) 85 % (42-78) H 06/18/19 17:21 Lymphocytes % (Manual) 10 % (13-45) L 06/18/19 17:21 Monocytes % (Manual) 5 % (3-13) 06/18/19 17:21 Eosinophils % (Manual) 0 % (0-6) 06/18/19 17:21 Basophils % (Manual) 0 % (0-2) 06/18/19 17:21 Abs Neuts (Manual) 18.1 10^3/uL (1.7-8.2) H 06/18/19 17:21 Abs Lymphs (Manual) 2.1 10^3/uL (0.5-4.7) 06/18/19 17:21 Abs Monocytes (Manual) 1.1 10^3/uL (0.1-1.4) 06/18/19 17:21 Absolute Eos (Manual) 0.0 10^3/uL (0.0-0.6) 06/18/19 17:21 Abs Basophils (Manual) 0.0 10^3/uL (0.0-0.2) 06/18/19 17:21 Large Platelets PRESENT 06/18/19 17:21 Platelet Comment ADEQUATE 06/18/19 17:21 Hypochromasia SLIGHT 06/18/19 17: PT 13.9 SEC (11.4-15.4) 06/18/19 17: INR 1.07 06/18/19 17:21 Sodium 138.9 mmol/L (137-145) 06/19/19 06:20 Potassium 4.1 mmol/L (3.6-5.0) 06/19/19 06:20 Chloride 107 mmol/L (98-107) 06/19/19 06:20 Carbon Dioxide 25 mmol/L (22-30) 06/19/19 06:20 Anion Gap 7 (5-19) 06/19/19 06:20 BUN 9 mg/dL (7-20) 06/19/19 06:20 Creatinine 0.46 mg/dL (0.52-1.25) L 06/19/19 06:20 Est GFR ( Amer) > 60 (>60) 06/19/19 06:20 Est GFR (MDRD) Non-Af > 60 (>60) 06/19/19 06:20 Glucose 134 mg/dL (75-110) H 06/19/19 06:20 POC Glucose 185 mg/dL (70-110) H 06/22/19 16:28 Hemoglobin A1c % 8.8 % (4.7-6.0) H 06/19/19 06:20 Lactic Acid 1.3 mmol/L (0.7-2.1) 06/19/19 01:21 Calcium 8.1 mg/dL (8.4-10.2) L 06/19/19 06:20 Magnesium 1.3 mg/dL (1.6-2.3) L 06/19/19 06:20 Total Bilirubin 1.0 mg/dL (0.2-1.3) 06/18/19 17:21 Direct Bilirubin 0.6 mg/dL (0.0-0.4) H 06/18/19 17:21 Neonat Total Bilirubin Not Reportable 06/18/19 17:21 Neonat Direct Bilirubin Not Reportable 06/18/19 17:21 Neonat Indirect Bili Not Reportable 06/18/19 17:21 AST 37 U/L (17-59) 06/18/19 17:21 ALT 36 U/L (<50) 06/18/19 17:21 Alkaline Phosphatase 167 U/L (38-126) H 06/18/19 17:21 Total Protein 9.4 g/dL (6.3-8.2) H 06/18/19 17: Albumin 3.8 g/dL (3.5-5.0) 06/18/19 17:21 Triglycerides 81 mg/dL (<150) 06/19/19 06:20 Cholesterol 105.95 mg/dL (0-200) 06/19/19 06:20 LDL Cholesterol Direct 79 mg/dL (<100) 06/19/19 06:20 VLDL Cholesterol 16.0 mg/dL (10-31) 06/19/19 06:20 HDL Cholesterol 18 mg/dL (>40) L 06/19/19 06:20 TSH 1.66 uIU/mL (0.47-4.68) 06/19/19 06:20 Urine Color YELLOW 06/18/19 20:23 Urine Appearance CLEAR 06/18/19 20: Urine pH 5.0 (5.0-9.0) 06/18/19 20: Ur Specific [place] 1.025 06/18/19 20: Urine Protein 30 mg/dL (NEGATIVE) H 06/18/19 20:23 Urine Glucose (UA) >=500 mg/dL (NEGATIVE) H 06/18/19 20: Urine Ketones NEGATIVE mg/dL (NEGATIVE) 06/18/19 20: Urine Blood NEGATIVE (NEGATIVE) 06/18/19 20: Urine Nitrite NEGATIVE (NEGATIVE) 06/18/19 20: Urine Bilirubin NEGATIVE (NEGATIVE) 06/18/19 20: Urine Urobilinogen NEGATIVE mg/dL (<2.0) 06/18/19 20:23 Ur Leukocyte Esterase NEGATIVE (NEGATIVE) 06/18/19 20:23 Urine WBC (Auto) 1 /HPF 06/18/19 20:23 Urine RBC (Auto) 1 /HPF 06/18/19 20:23 Squamous Epi Cells Auto 1 /HPF 06/18/19 20:23 Urine Mucus (Auto) RARE /LPF 06/18/19 20:23 Urine Ascorbic Acid NEGATIVE (NEGATIVE) 06/18/19 20:23 Time Trough Drawn 2151 06/21/19 21:51 Vancomycin Trough 43.7 ug/mL (5.0-20.0) H 06/21/19 21:51 Impressions: Foot X-Ray 06/18/19 17:12 IMPRESSION: Osteopenia. There is no evidence of osteomyelitis. Extremity Arterial Study 06/18/19 17:55 IMPRESSION: Findings suggestive of moderate to severe atheromatous disease with extensive atheromatous changes and diffusely monophasic waveforms throughout. copyright 2011 [employer]- All Rights Reserved Plan Plan of Treatment: Patient is discharged home in stable condition with home health nursing and physical therapy services. Follow-up with your primary care provider within 1 week. Follow up with Dr. Hendrix within 10 days. Complete your full course of antibiotic therapy. Take your other medication as prescribed. Eat a heart healthy, consistent carb, diet. Do NOT smoke. Return to emergency department as needed for concerning symptoms. Time Spent: Greater than 30 Minutes Stroke Is this a Stroke Patient?: No Acute Heart Failure - Is this a Heart Failure Patient?: No
[2019-06-23] MEDS ORDERED: VANCOMYCIN HCL 750 MG in DEXTROSE 5%-WATER 250 ML IV SCH (10:00)
== END 2019-06-22 18:31 | disposition home health service (06) | DRG 240 ==
LOC: ER 16:57 → EH 20:13 → 4N 22:37
PROVIDERS: ADMIT Emergency Medicine; ATTEND Registered Nurse
PROC: 0Y6H0Z2 Detachment at Right Lower Leg, Mid, Open Approach (ICD-10-PCS; principal; 2019-06-19 09:15)
DX: E11.52 Type 2 diabetes mellitus with diabetic peripheral angiopathy with gangrene (principal); I96 Gangrene, not elsewhere classified; M86.171 Other acute osteomyelitis, right ankle and foot; L03.115 Cellulitis of right lower limb; E11.621 Type 2 diabetes mellitus with foot ulcer; E11.69 Type 2 diabetes mellitus with other specified complication; E11.628 Type 2 diabetes mellitus with other skin complications; I10 Essential (primary) hypertension; E11.65 Type 2 diabetes mellitus with hyperglycemia; E78.5 Hyperlipidemia, unspecified; L97.519 Non-pressure chronic ulcer of other part of right foot with unspecified severity; F17.210 Nicotine dependence, cigarettes, uncomplicated; G54.6 Phantom limb syndrome with pain; Z79.84 Long term (current) use of oral hypoglycemic drugs; Z82.49 Family history of ischemic heart disease and other diseases of the circulatory system; Z83.3 Family history of diabetes mellitus; Z91.19 Patient's noncompliance with other medical treatment and regimen
CPT/HCPCS: 01482; 36415; 80048; 80053; 80061; 80202; 81001; 82962; 83036; 83605; 83735; 84443; 85025; 85027; 85610; 87040; 87070; 87077; 87186; 87205; 88307; 88311; 93005; 93010; 93926; 96361; 96365; 96367; 96375; 99285; J0360; J0692; J1815; J2250; J2270; J2405; J2543; J2550; J2704; J3010; J3370; J3490; J7030; J7050; J7060; L1830

== ENCOUNTER → 2019-09-24 | Outpatient (CLI) | payer BC ==
--- NOTE | 2019-09-24 12:30 | RADIOLOGY REPORT (SQ) ---
EXAM DESCRIPTION: TIBIA FIBULA LEFT IMAGES COMPLETED DATE/TIME: 09/24/2019 12:02 pm REASON FOR STUDY: ACQUIRED DEFORMITY OF LEFT LOWER EXTREMITY M21.952 UNSPECIFIED ACQUIRED DEFORMITY OF LEFT THIGH COMPARISON: None. NUMBER OF VIEWS: Two views. TECHNIQUE: Two radiographic images acquired of the left tibia and fibula to include the knee and ank le in at least one projection. LIMITATIONS: None. FINDINGS: MINERALIZATION: Normal. BONES: Old tibial and fibular fractures. There is hardware on the distal tibia. Degenerative joint changes are present in the tibiotalar joint. SOFT TISSUES: No obvious swelling or foreign body. OTHER: No other significant finding. IMPRESSION: Old fractures. 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 TECHNICAL DOCUMENTATION: JOB ID: [id number] 2010 [email or web address]- All Rights Reserved Reading location - IP/workstation name: [email or web address]
== END ==
LOC: OD 10:01
PROVIDERS: ATTEND Nurse Practitioner Family
DX: M21.952 Unspecified acquired deformity of left thigh (principal); M17.12 Unilateral primary osteoarthritis, left knee